=== PATIENT | female | born 1985 | race American Indian/Alaskan Native ===

== ENCOUNTER 2019-02-09 12:54 | Inpatient (IN) | payer MEDICAID ==
[2019-02-09] MEDS ORDERED: CELESTONE SOLUSPAN IM SCH (17:00)
[2019-02-09] MEDS ORDERED: LACTATED RINGERS 0 ML ONE (17:26)
[2019-02-09 17:40] LABS: Hematocrit 31.4 % (30.3-42.9); Hemoglobin 10.6 gm/dl (10.1-14.3); Mean Corpuscular HGB Conc 34 % (30-34); Mean Corpuscular Volume 73 fl (79-97); Platelet Count 329 K/mm3 (140-440); Red Blood Count 4.32 M/mm3 (3.65-5.03); Red Cell Distribution Width 19.2 % (13.2-15.2)
[2019-02-09 17:53] LABS: Alanine Aminotransferase 11 units/L (7-56); Uric Acid 3.2 mg/dL (3.5-7.6)
[2019-02-09 17:54] LABS: Bilirubin,Direct < 0.2 mg/dL (0-0.2)
[2019-02-09] MEDS ORDERED: MAGNESIUM SULFATE 4GM/100ML 4 GM/100 ML BAG IV ONE (19:11)
--- NOTE | 2019-02-09 19:18 | History and Physical Report ---
History of Present Illness Date of admission: 02/09/19 12:54 History of present illness: 33yo 29 6/7 weeks presented to L&D sent by [facility] [place] for absent diastolic flow of umbilical artery, single umbilical artery, IUGR and chronic hypertension. Her is further complicated by marginal cord, morbid obesity and advanced maternal age. She reports good movement, no loss of fluid and no vaginal bleeding. She is a patient of Dr. Geraldo Villarreal's at [facility]. She has b een com-managed with [facility] [place] who identified the AEDF today. Of significance, the patient states since 3 yo's she's been unable to take oral pills and therefore has not taken the recommended low dose aspirin or labetolol. Past History Past Medical History: hypertension Past Surgical History: section, other Social history: single - Obstetrical History : 5 Induced : 3 Number of Living Children: 1 Medications and Allergies Allergies Allergy/AdvReac Type Severity Reaction Status Date / Time No Known Allergies Allergy Unverified 02/09/19 13:30 Home Medications Medication Instructions Recorded Confirmed Last Taken Type Labetalol [Normodyne TAB] 100 mg PO BID 02/09/19 02/09/19 02/09/19 History 1 Pnv,Calcium 72/Iron/Folic Acid 1 each PO DAILY 02/09/19 02/09/19 02/09/19 History [Pnv Plus Multivit Tab] Active Meds: Active Medications Betamethasone Acet/Betameth SodPhos (Celestone Soluspan) 12 mg IM Q24H KATEY Stop: 02/10/19 17:01 Last Admin: 02/09/19 18:21 Dose: 12 mg Documented by: Hydralazine HCl (Apresoline) 5 mg IV Q30MIN PRN PRN Reason: Hypertension Lactated Ringer's (Lactated Ringers) 1,000 mls @ 125 mls/hr IV DIRECT KATEY Magnesium Sulfate (Magnesium Sulfate 40gm/1000ml) 40 gm in 1,000 mls @ 50 mls/hr IV DIRECT KATEY Magnesium Sulfate (Magnesium Sulfate 4gm/100ml) 4 gm in 100 mls @ 300 mls/hr IV ONCE ONE Stop: 02/09/19 19:30 - Vital Signs Vital signs: Vital Signs Pulse BP 67 150/75 02/09/19 13:27 02/09/19 13:27 Temp Pulse Resp BP Pulse Ox 98.1 F 60 18 164/74 02/09/19 13:38 02/09/19 18:48 02/09/19 13:38 02/09/19 18:48 - Obstetrical FHR: auscultation normal Uterine Contraction Pattern: Absent Results Result Diagrams: 02/09/19 17:01 02/10/19 05:36 Abnormal lab results 02/09/19 02/09/19 02/09/19 Range/Units 17:01 17:07 17:08 MCV 73 L (79-97) fl MCH 25 L (28-32) pg RDW 19.2 H (13.2-15.2) % Uric Acid 3.2 L (3.5-7.6) mg/dL Lactate Dehydrogenase 245 H (91-180) units/L Albumin 3.0 L (3.9-5) g/dL All other labs normal. Assessment and Plan - Patient Problems (1) Chronic hypertension affecting Current Visit: Yes Status: Acute Plan to address problem: -PIH labs, HgbA1C ordered -Labetolol 100mg PO BID ordered. (2) Uteroplacental insufficiency, third trimester Current Visit: Yes Status: Acute Plan to address problem: 1. Per APA recommendations due to absent end diastolic flow - order twice weekly UA dopplers, first 02/10/19 - betamethasone for lung maturity - magnesium sulfate for neuroprotection for 12-24hrs (3) Single umbilical artery Current Visit: Yes Status: Acute (4) IUGR (intrauterine growth restriction) Current Visit: Yes Status: Acute Plan to address problem: -TORCH labs ordered (5) 29 weeks gestation of Current Visit: Yes Status: Acute Plan to address problem: Continuous monitoring consult for counseling on outcomes for premature infant
--- NOTE | 2019-02-09 21:07 | Ultrasound Report ---
PROCEDURE: US OB BPP WO NON-STRESS TECHNIQUE: Sonographic evaluation for breathing, movement, tone, and amniotic flui d volume was performed. HISTORY: chronic hypertension COMPARISONS: None . FINDINGS: FETUS Single intrauterine gestation is noted. heart rate is 150 bpm Amniotic fluid volume Normal-score 2. At least one vertical pocket >2 cm or more in vertical axis . breathing: Normal-score 2 . movement: Normal-score 2 . tone: Normal-score 2 . Score: 8 of 8 . IMPRESSION: Normal biophysical profile . This document is electronically signed by Dany Mcdaniel MD., February 09 2019 09:05:55 PM ET
[2019-02-09] MEDS: LACTATED RINGERS 1,000 ML IV SCH (21:46)
[2019-02-09] MEDS: MAGNESIUM SULFATE 40GM/1000ML 40 GM/1,000 ML BAG IV SCH (21:47)
[2019-02-09] MEDS ORDERED: NORMODYNE PO SCH (22:00)
[2019-02-09] MEDS ORDERED: ZOFRAN IV PRN (23:44)
[2019-02-09] MEDS ORDERED: COLACE PO PRN (23:44)
[2019-02-09] MEDS ORDERED: BENADRYL PO PRN (23:44)
[2019-02-10 08:29] LABS: Bilirubin,Urine NEG (Negative); Blood,Urine SM (Negative); Color,Urine Straw (Yellow); Protein,Urine <15 mg/dL mg/dL (Negative); Urobilinogen,Urine < 2.0 mg/dL (<2.0)
--- NOTE | 2019-02-10 08:29 | Progress Note ---
Assessment and Plan - Patient Problems (1) Chronic hypertension affecting Current Visit: Yes Status: Acute Plan to address problem: -PIH labs, HgbA1C ordered -Labetolol 100mg PO BID ordered. (2) Uteroplacental insufficiency, third trimester Current Visit: Yes Status: Acute Plan to address problem: 1. Per APA recommendations due to absent end diastolic flow - order twice weekly UA dopplers, first 02/10/19 - betamethasone for lung maturity - magnesium sulfate for neuroprotection for 12-24hrs (3) Single umbilical artery Current Visit: Yes Status: Acute (4) IUGR (intrauterine growth restriction) Current Visit: Yes Status: Acute Plan to address problem: -TORCH labs ordered (5) 29 weeks gestation of Current Visit: Yes Status: Acute Plan to address problem: Continuous monitoring consult for counseling on outcomes for premature Subjective - Subjective Interval history: Patient has no new complaints. Reports good movement, no loss of fluid and no vaginal bleeding. 33yo 29 6/7 weeks presented to L&D sent by [facility] [place] for absent diastolic flow of umbilical artery, single umbilical artery, IUGR and chronic hypertension. Her is further complicated by marginal cord, morbid obesity and advanced maternal age. She reports good movement, no loss of fluid and no vaginal bleeding. She is a patient of Dr. Geraldo Villarreal's at [facility]. She has been com-managed with [facility] [place] who identified the AEDF today. Of significance, the patient states since 3 yo's she's been unable to take oral pills and therefore has not taken the recommended low dose aspirin or labetolol. Patient reports: movement normal Objective - Vital Signs Vital Signs: Vital Signs - 12hr 02/09/19 02/09/19 02/09/19 20:37 20:52 20:56 Temperature 98.8 F Pulse Rate 60 60 Respiratory 18 Rate Blood Pressure 148/71 161/74 Blood Pressure [Right] O2 Sat by Pulse 99 Oximetry 02/09/19 02/09/19 02/09/19 21:07 21:22 21:43 Temperature Pulse Rate 69 71 71 Respiratory 18 Rate Blood Pressure 186/101 169/79 160/83 Blood Pressure [Right] O2 Sat by Pulse Oximetry 02/09/19 02/09/19 02/09/19 21:45 21:46 21:52 Temperature 97.6 F Pulse Rate 64 58 L Respiratory 18 Rate Blood Pressure 160/83 159/74 Blood Pressure [Right] O2 Sat by Pulse Oximetry 02/09/19 02/09/19 02/09/19 22:07 22:22 22:38 Temperature Pulse Rate 66 83 88 Respiratory 18 18 18 Rate Blood Pressure 159/76 147/65 135/57 Blood Pressure [Right] O2 Sat by Pulse Oximetry 02/09/19 02/09/19 02/09/19 22:52 23:07 23:22 Temperature Pulse Rate 77 82 86 Respiratory 18 Rate Blood Pressure 140/65 141/67 142/71 Blood Pressure [Right] O2 Sat by Pulse Oximetry 02/09/19 02/10/19 02/10/19 23:37 00:17 00:47 Temperature 98 F 97.6 F Pulse Rate 90 86 77 Respiratory 18 18 Rate Blood Pressure 132/66 137/73 147/71 Blood Pressure [Right] O2 Sat by Pulse Oximetry 02/10/19 02/10/19 02/10/19 01:17 01:47 01:50 Temperature 98.4 F Pulse Rate 80 82 82 Respiratory 16 Rate Blood Pressure 132/60 131/73 Blood Pressure 131/72 [Right] O2 Sat by Pulse Oximetry 02/10/19 02/10/19 02/10/19 02:17 02:47 03:00 Temperature 98.4 F Pulse Rate 81 83 Respiratory 16 Rate Blood Pressure 137/85 125/73 Blood Pressure [Right] O2 Sat by Pulse Oximetry 02/10/19 02/10/19 02/10/19 03:17 03:47 04:00 Temperature Pulse Rate 85 79 Respiratory 16 Rate Blood Pressure 138/75 138/81 Blood Pressure [Right] O2 Sat by Pulse Oximetry 02/10/19 02/10/19 02/10/19 04:17 04:47 05:17 Temperature Pulse Rate 77 81 82 Respiratory Rate Blood Pressure 136/76 147/83 140/78 Blood Pressure [Right] O2 Sat by Pulse Oximetry 02/10/19 02/10/19 02/10/19 05:19 05:47 06:17 Temperature Pulse Rate 83 81 Respiratory 16 Rate Blood Pressure 140/79 123/59 Blood Pressure [Right] O2 Sat by Pulse Oximetry 02/10/19 02/10/19 02/10/19 06:47 07:18 07:47 Temperature Pulse Rate 82 84 95 H Respiratory Rate Blood Pressure 141/75 130/79 124/85 Blood Pressure [Right] O2 Sat by Pulse Oximetry 02/10/19 02/10/19 02/10/19 07:56 08:00 08:01 Temperature 98.0 F Pulse Rate 84 86 Respiratory 20 Rate Blood Pressure Blood Pressure [Right] O2 Sat by Pulse 98 99 Oximetry 02/10/19 02/10/19 02/10/19 08:06 08:11 08:16 Temperature Pulse Rate 86 90 86 Respiratory Rate Blood Pressure Blood Pressure [Right] O2 Sat by Pulse 98 98 99 Oximetry 02/10/19 02/10/19 02/10/19 08:17 08:21 08:26 Temperature Pulse Rate 86 86 83 Respiratory Rate Blood Pressure 154/88 Blood Pressure [Right] O2 Sat by Pulse 98 99 Oximetry - Labs Labs: Abnormal Labs 02/09/19 02/09/19 02/09/19 17:01 17:07 17:08 MCV 73 L MCH 25 L RDW 19.2 H Creatinine Uric Acid 3.2 L Lactate Dehydrogenase 245 H Albumin 3.0 L 02/10/19 05:36 MCV MCH RDW Creatinine 0.6 L Uric Acid Lactate Dehydrogenase Albumin Laboratory Results - last 24 hr 02/09/19 02/09/19 02/09/19 17:01 17:07 17:08 WBC 9.4 RBC 4.32 Hgb 10.6 Hct 31.4 MCV 73 L MCH 25 L MCHC 34 RDW 19.2 H Plt Count 329 Creatinine Estimated GFR Hemoglobin A1c Uric Acid 3.2 L Total Bilirubin < 0.20 Direct Bilirubin < 0.2 Indirect Bilirubin 0.0 AST 25 ALT 11 Alkaline Phosphatase 96 Lactate Dehydrogenase 245 H Total Protein 6.5 Albumin 3.0 L Albumin/Globulin Ratio 0.9 HIV 1&2 Antibody Rapid HIV P24 Antigen Rubella IgG Antibody 02/09/19 02/10/19 02/10/19 17:08 05:36 05:36 WBC RBC Hgb Hct MCV MCH MCHC RDW Plt Count Creatinine 0.6 L Estimated GFR > 60 Hemoglobin A1c 5.7 Uric Acid Total Bilirubin Direct Bilirubin Indirect Bilirubin AST ALT Alkaline Phosphatase Lactate Dehydrogenase Total Protein Albumin Albumin/Globulin Ratio HIV 1&2 Antibody Rapid HIV P24 Antigen Rubella IgG Antibody Immune 02/10/19 05:36 WBC RBC Hgb Hct MCV MCH MCHC RDW Plt Count Creatinine Estimated GFR Hemoglobin A1c Uric Acid Total Bilirubin Direct Bilirubin Indirect Bilirubin AST ALT Alkaline Phosphatase Lactate Dehydrogenase Total Protein Albumin Albumin/Globulin Ratio HIV 1&2 Antibody Rapid Non react HIV P24 Antigen Non react Rubella IgG Antibody
[2019-02-10] MEDS: FEOSOL PO SCH ×2 (09:34→21:37)
[2019-02-10] MEDS: NORMODYNE PO SCH ×2 (09:34→21:36)
--- NOTE | 2019-02-10 14:22 | Consultation ---
Consult Note - Parent Education I met with parent(s) and discussed the following:: Need for NICU admission, Poss ible need for intubation and surfactant or other resp support, Temperature regulation, Head ultrasounds to evaluate IVH, Eye exams for ROP screening, Possible need for IV fluids/TPN and IV antibiotics, Possible need for umbilical lines, Importance of providing breast milk & encouraged pumping aft delivery, Donor breast milk if baby meets criteria after , Slow feeding advancement and monitoring of tolerance. NG/OG feeds, Need to monitor for jaundice Parent(s) demonstrated understanding of all the information:: Yes Additional Comment: 29 weeks gestation IUGR with absent end distolic flow. Mother has chronic HTN. Mother states baby has 2 vessel cord. Previous child (9yrs old) was 36 weeks IUGR and stayed in NICU for 2-3 weeks. Assessment and Plan - Assessment Gestation:: 29 (weeks) Estimated Weight: approx 1000g from US 2 weeks prior Baby's gender: Male - Plan Plan: Agree with Mag & steroids Will attend delivery Please call NICU with questions
[2019-02-10] MEDS: LACTATED RINGERS 1,000 ML IV SCH (17:35)
[2019-02-10] MEDS ORDERED: CELESTONE SOLUSPAN IM SCH (19:15)
--- NOTE | 2019-02-10 20:56 | Ultrasound Report ---
PROCEDURE: US OB LIMITED TECHNIQUE: Real-time limited sonographic examination was performed for evaluation of for each fetus with image documentation (1 or more fetuses). HISTORY: FWB;RYAN COMPARISONS: None . FINDINGS: Single intrauterine gestation is noted with cephalic presentation. heart rate is 106 bpm. Amnio tic fluid index is 8.5 cm. IMPRESSION: Normal amniotic fluid index This document is electronically signed by Dany Mcdaniel MD., February 10 2019 08:54:51 PM ET
--- NOTE | 2019-02-11 10:19 | Ultrasound Report ---
PROCEDURE: US OB VELOCIMETRY UMBILCAL ART TECHNIQUE: Duplex Doppler imaging of the umbilical artery was performed HISTORY: chronic hypertension COMPARISONS: None. FINDINGS: There is intermittently a decreased end diastolic flow within the umbilical artery, with an elevated systolic to diastolic ratio average of 5.17. Resistive indices average is 0.8. IMPRESSION: Intermittent reduction in end-diastolic flow of the umbilical artery with elevated resistive indices. This document is electronically signed by Autumn Andrade MD., February 11 2019 10:16:58 AM ET
[2019-02-11] MEDS: NORMODYNE PO SCH ×2 (11:21→21:47)
[2019-02-11] MEDS: FEOSOL PO SCH ×2 (11:23→21:47)
--- NOTE | 2019-02-11 14:09 | Progress Note ---
Assessment and Plan - Patient Problems (1) Chronic hypertension affecting Current Visit: Yes Status: Acute Plan to address problem: - PIH labs reviewed and within normal asher its - HgbA1C 5.7. 1hr OGTT available at [facility] - BP labile 130-160/80s; Continue Labetolol 100mg PO BID - s/p magnesium sulfate for neuroprotection - s/p betamethasone for lung maturity - NICU consult done - 24hr urine protein 770mg. Obtain baseline results from [facility]. Patient states has done 3 collections. - Await APA recommendation on Tuesday - Dr. Steve Villarreal will resume care of patient on 02/12/2019. (2) Uteroplacental insufficiency, third trimester Current Visit: Yes Status: Acute (3) Single umbilical artery Current Visit: Yes Status: Acute (4) IUGR (intrauterine growth restriction) Current Visit: Yes Status: Acute Plan to address problem: -TORCH labs ordered (5) 29 weeks gestation of Current Visit: Yes Status: Acute Plan to address problem: Continuous monitoring Subjective - Subjective Interval history: Patient has no new complaints. Reports good movement, no loss of fluid and no vaginal bleeding. 33yo 29 6/7 weeks presented to L&D sent by [facility] [place] for absent diastolic flow of umbilical artery, single umbilical artery, IUGR and chronic hypertension. Her is further complicated by marginal cord, morbid obesity and advanced maternal age. She reports good movement, no loss of fluid and no vaginal bleeding. She is a patient of Dr. Geraldo Villarreal's at [facility]. She has been com-managed with [facility] who identified the AEDF today. Of significance, the patient states since 3 yo's she's been unable to take oral pills and therefore has not taken the recommended low dose aspirin or labetolol. Patient reports: movement normal Objective - Vital Signs Vital Signs: Vital Signs - 12hr 02/11/19 02/11/19 02/11/19 02:10 02:15 02:17 Temperature Pulse Rate 72 82 85 Respiratory Rate Blood Pressure 142/83 O2 Sat by Pulse 98 97 Oximetry 02/11/19 02/11/19 02/11/19 02:20 02:25 02:27 Temperature Pulse Rate 82 78 88 Respiratory Rate Blood Pressure O2 Sat by Pulse 98 99 81 L Oximetry 02/11/19 02/11/19 02/11/19 02:30 02:35 02:40 Temperature Pulse Rate 69 73 71 Respiratory Rate Blood Pressure O2 Sat by Pulse 98 98 98 Oximetry 02/11/19 02/11/19 02/11/19 02:45 02:47 02:50 Temperature Pulse Rate 89 77 73 Respiratory Rate Blood Pressure 139/86 O2 Sat by Pulse 98 99 Oximetry 02/11/19 02/11/19 02/11/19 02:55 03:00 03:05 Temperature Pulse Rate 84 80 69 Respiratory Rate Blood Pressure O2 Sat by Pulse 99 98 98 Oximetry 02/11/19 02/11/19 02/11/19 03:10 03:15 03:20 Temperature Pulse Rate 82 81 85 Respiratory Rate Blood Pressure O2 Sat by Pulse 98 98 98 Oximetry 02/11/19 02/11/19 02/11/19 03:25 03:30 03:47 Temperature Pulse Rate 73 86 57 L Respiratory Rate Blood Pressure 130/62 O2 Sat by Pulse 98 98 Oximetry 02/11/19 02/11/19 02/11/19 04:17 04:47 05:17 Temperature Pulse Rate 62 95 H 61 Respiratory Rate Blood Pressure 129/63 118/75 142/65 O2 Sat by Pulse Oximetry 02/11/19 02/11/19 02/11/19 05:47 05:55 06:00 Temperature Pulse Rate 80 70 85 Respiratory Rate Blood Pressure 123/65 O2 Sat by Pulse 97 97 Oximetry 02/11/19 02/11/19 02/11/19 06:05 06:10 06:15 Temperature Pulse Rate 87 72 85 Respiratory Rate Blood Pressure O2 Sat by Pulse 97 97 97 Oximetry 02/11/19 02/11/19 02/11/19 06:17 06:20 06:25 Temperature Pulse Rate 83 87 83 Respiratory Rate Blood Pressure 132/76 O2 Sat by Pulse 97 98 Oximetry 02/11/19 02/11/19 02/11/19 06:30 06:35 06:40 Temperature Pulse Rate 89 92 H 92 H Respiratory Rate Blood Pressure O2 Sat by Pulse 97 94 97 Oximetry 02/11/19 02/11/19 02/11/19 06:45 06:47 06:50 Temperature Pulse Rate 81 78 77 Respiratory Rate Blood Pressure 136/71 O2 Sat by Pulse 96 97 Oximetry 02/11/19 02/11/19 02/11/19 06:55 07:00 07:05 Temperature Pulse Rate 83 79 84 Respiratory Rate Blood Pressure O2 Sat by Pulse 97 95 96 Oximetry 02/11/19 02/11/19 02/11/19 07:24 07:29 07:35 Temperature Pulse Rate 63 68 66 Respiratory Rate Blood Pressure O2 Sat by Pulse 98 97 97 Oximetry 02/11/19 02/11/19 02/11/19 07:40 07:45 07:47 Temperature Pulse Rate 59 L 63 64 Respiratory Rate Blood Pressure 143/67 O2 Sat by Pulse 97 97 Oximetry 02/11/19 02/11/19 02/11/19 07:50 07:55 08:00 Temperature Pulse Rate 69 77 84 Respiratory Rate Blood Pressure O2 Sat by Pulse 97 96 97 Oximetry 02/11/19 02/11/19 02/11/19 08:05 08:10 08:15 Temperature 98.3 F Pulse Rate 75 76 66 Respiratory 16 Rate Blood Pressure O2 Sat by Pulse 97 97 96 Oximetry 02/11/19 02/11/19 02/11/19 08:17 08:19 08:24 Temperature Pulse Rate 68 70 93 H Respiratory Rate Blood Pressure 138/68 O2 Sat by Pulse 94 97 97 Oximetry 02/11/19 02/11/19 02/11/19 08:30 08:34 08:39 Temperature Pulse Rate 64 71 75 Respiratory Rate Blood Pressure O2 Sat by Pulse 96 98 97 Oximetry 02/11/19 02/11/19 11:20 11:21 Temperature Pulse Rate 71 71 Respiratory Rate Blood Pressure 133/69 133/69 O2 Sat by Pulse Oximetry - Labs Labs: Abnormal Labs 02/09/19 02/09/19 02/09/19 16:01 17:01 17:07 MCV 73 L MCH 25 L RDW 19.2 H Creatinine Uric Acid Magnesium Lactate Dehydrogenase 245 H Albumin Urine WBC (Auto) Ur Total Protein 24 Hr 770.00 H Urine Total Protein 22 H 02/09/19 02/10/19 02/10/19 17:08 05:36 08:03 MCV MCH RDW Creatinine 0.6 L Uric Acid 3.2 L Magnesium Lactate Dehydrogenase Albumin 3.0 L Urine WBC (Auto) 8.0 H Ur Total Protein 24 Hr Urine Total Protein 02/10/19 02/10/19 09:23 15:45 MCV MCH RDW Creatinine Uric Acid Magnesium 5.90 H 5.10 H Lactate Dehydrogenase Albumin Urine WBC (Auto) Ur Total Protein 24 Hr Urine Total Protein Laboratory Results - last 24 hr 02/09/19 02/10/19 16:01 15:45 Magnesium 5.10 H Urine Total Volume 3500 Ur Total Protein 24 Hr 770.00 H Urine Total Protein 22 H
[2019-02-11] MEDS: LACTATED RINGERS 1,000 ML IV SCH (16:51)
--- NOTE | 2019-02-12 00:56 | Ultrasound Report ---
PROCEDURE: US OB BPP WO NON-STRESS TECHNIQUE: Sonographic evaluation for breathing, movement, tone, and amniotic flui d volume was performed. HISTORY: well being COMPARISONS: None . FINDINGS: FETUS Amniotic fluid volume Normal-score 2. At least one vertical pocket >2 cm or more in vertical axis . breathing: Normal-score 2 . movement: Normal-score 2 . tone: Normal-score 2 . Score: 8 of 8 . IMPRESSION: Normal biophysical profile . This document is electronically signed by Cherry Corral DO., February 12 2019 12:54:41 AM ET
--- NOTE | 2019-02-12 01:33 | Ultrasound Report ---
PROCEDURE: US OB VELOCIMETRY UMBILCAL ART TECHNIQUE: Duplex Doppler imaging of the umbilical artery HISTORY: well being maternal hypertension COMPARISONS: February 11, 2019 FINDINGS: There is intermittently decreased and diastolic flow within the umbilical artery, there is elevated s ystolic to diastolic ratio average of 5.5 the resistive indices average is 0.8 IMPRESSION: Unchanged indeterminate reduction and diastolic flow of the umbilical artery with elevated resistive indices. This document is electronically signed by Cherry Corral DO., February 12 2019 01:30:25 AM ET
[2019-02-12] MEDS: LACTATED RINGERS 1,000 ML IV SCH ×2 (02:52→15:05)
--- NOTE | 2019-02-12 10:23 | Progress Note ---
Assessment and Plan - Patient Problems (1) 29 weeks gestation of Current Visit: Yes Status: Acute (2) Chronic hypertension affecting Current Visit: Yes Status: Acute Plan to address problem: Continue labetolol. Monitor BP. (3) IUGR (intrauterine growth restriction) Current Visit: Yes Status: Acute (4) Uteroplacental insufficiency, third trimester Current Visit: Yes Status: Acute Qualifiers: Qualified Code(s): O36.5134 - Maternal care for known or suspected placental insufficiency, third trimester, fetus 4 Plan to address problem: Continous monitoring. Follow sonogram with doppler tonight. Patient was told that if umbilical doppler flow becomes reversed, or there are any signs of compromise, she will need to be delivered. APA consult. NICU consult done. (5) Obesity Current Visit: Yes Status: Acute Qualifiers: Obesity type: due to excess calories (6) Anemia Current Visit: Yes Status: Acute Qualifiers: Anemia type: iron deficiency Subjective - Subjective Date of service: 02/12/19 Principal diagnosis: SIUP at 29 weeks and 5 days with CHTN, IUGR, absent EDF Interval history: Patient is a 33 year old EDC 04/25/19 at 29 weeks and 5 days gestation who was admitted 3 days ago for elevated BP, IUGR, absent EDF. She is a patient of [place] and has been co-managed with [facility]. She was seen at [facility] on 02/09 and sonogram showed the above findings. On admission, her BP was elevated and toxemia labs were normal. 24-hr urine was 770. She is on labetolol. She was given celestone for FLM (completed on 02/10) and magnesium sulfate for neuroprotection. Follow cord doppler remains unchanged. Patient reports good movement. Patient reports: movement normal Objective - Vital Signs Vital Signs: Vital Signs - 12hr 02/11/19 02/12/19 02/12/19 23:34 05:53 05:54 Pulse Rate 62 52 L 56 L Blood Pressure 138/63 190/83 165/64 - Exam Cardiovascular: Normal S1, Normal S2 Lungs: Clear to auscultation Vulva: both: normal FHR: category 1 Uterine Contraction Monitor Mode: External Uterine Contraction Pattern: Absent Deep Tendon Reflex Grade: Normal +2 - Labs Labs: Abnormal Labs 02/09/19 02/09/19 02/09/19 16:01 17:01 17:07 MCV 73 L MCH 25 L RDW 19.2 H Creatinine Uric Acid Magnesium Lactate Dehydrogenase 245 H Albumin Urine WBC (Auto) Ur Total Protein 24 Hr 770.00 H Urine Total Protein 22 H 02/09/19 02/10/19 02/10/19 17:08 05:36 08:03 MCV MCH RDW Creatinine 0.6 L Uric Acid 3.2 L Magnesium Lactate Dehydrogenase Albumin 3.0 L Urine WBC (Auto) 8.0 H Ur Total Protein 24 Hr Urine Total Protein 02/10/19 02/10/19 09:23 15:45 MCV MCH RDW Creatinine Uric Acid Magnesium 5.90 H 5.10 H Lactate Dehydrogenase Albumin Urine WBC (Auto) Ur Total Protein 24 Hr Urine Total Protein - Results US- obstetric: report reviewed
[2019-02-12] MEDS: FEOSOL PO SCH ×2 (10:24→21:21)
[2019-02-12] MEDS: NORMODYNE PO SCH ×2 (10:24→21:19)
--- NOTE | 2019-02-12 11:42 | Ultrasound Report ---
ULTRASOUND BIOPHYSICAL PROFILE: History: Intrauterine growth restriction Technique: Transabdominal ultrasound with Doppler interrogation. 2 - breathing movements 2 - movements 2 - posture and tone 2 - Qualitative amniotic fluid volume 8 - TOTAL SCORE OF POSSIBLE 8 Heart Rate (bpm) 146
--- NOTE | 2019-02-12 11:43 | Ultrasound Report ---
ULTRASOUND OB VELOCIMETRY UMBILICAL ARTERY HISTORY: Intrauterine growth restriction. TECHNIQUE: Transabdominal ultrasound. Spectral Doppler interrogation was performed on 3 segments of the umbilical cord. FINDINGS: heart rate measures 147 beats per minute. The spectral waveforms are normal and persistent. No evidence for loss or reversal of end-diastolic flow. The resistive index average measures 0.78. The systolic/diastolic ratio average measures 4.49. IMPRESSION: Elevated resistive indices.
--- NOTE | 2019-02-12 12:14 | Progress Note ---
Assessment and Plan patient is 33 yo @ 30w2d with IUGR sent with AEDF and CHTN not well controlled, MO and AMA - I reviewed the images from the US today and the BPP was 8/8 and the UA was normal to elevated - the patient BP has not been controlled and she has no sxs - the labetalol will be increased to 300 BID - NST should be q 8 - growth scan q 3 weeks - ensure beta and mag course complete - PIH labs were normal - the patient may be able to be outpatient after BP are normal and controlled but we would need to consider MELANIE as well - the patient understadnsd that she will stay at this time in house - please call will watch BP on new dose medication - BP should be stabilized to 160/110 - with labs abniormalities, RUQ pain, pulm edema, kidney compromise NRFHT would have to consider delivery at earlier GA - doppler should be MWF and with deterioration would make further assessment - please call [facility] with any further concerns Subjective - Subjective Date of service: 02/12/19 Principal diagnosis: SIUP at 29 weeks and 5 days with CHTN, IUGR, absent EDF Interval history: the patient says that she is feeling well at the moment and has no ESTEBAN vision changes no RUQ pain, good FM no VB she feels well Patient reports: movement normal, no new complaints, no loss of fluid, no vaginal bleeding, no contractions Objective - Vital Signs Vital Signs: Vital Signs - 12hr 02/12/19 02/12/19 02/12/19 05:53 05:54 10:24 Pulse Rate 52 L 56 L 56 L Blood Pressure 190/83 165/64 165/64 02/12/19 02/12/19 10:26 10:27 Pulse Rate 50 L 54 L Blood Pressure 234/102 187/84 - Exam Cardiovascular: Regular rate Abdomen: Present: normal appearance, soft. Absent: distention, tenderness, guarding Uterus: Present: normal FHR: other (not on monitor now ) Extremities: normal - Labs Labs: Abnormal Labs 02/09/19 02/09/19 02/09/19 16:01 17:01 17:07 MCV 73 L MCH 25 L RDW 19.2 H Creatinine Uric Acid Magnesium Lactate Dehydrogenase 245 H Albumin Urine WBC (Auto) Ur Total Protein 24 Hr 770.00 H Urine Total Protein 22 H 0402/10/19 02/10/19 17:08 05:36 08:03 MCV MCH RDW Creatinine 0.6 L Uric Acid 3.2 L Magnesium Lactate Dehydrogenase Albumin 3.0 L Urine WBC (Auto) 8.0 H Ur Total Protein 24 Hr Urine Total Protein 02/10/19 02/10/19 09:23 15:45 MCV MCH RDW Creatinine Uric Acid Magnesium 5.90 H 5.10 H Lactate Dehydrogenase Albumin Urine WBC (Auto) Ur Total Protein 24 Hr Urine Total Protein
[2019-02-12] MEDS: APRESOLINE IV PRN (19:29)
[2019-02-12] MEDS ORDERED: MILK OF MAGNESIA PO ONE (23:11)
[2019-02-13] MEDS: LACTATED RINGERS 1,000 ML IV SCH (00:29)
[2019-02-13 00:37] LABS: Hematocrit 32.1 % (30.3-42.9); Mean Corpuscular HGB Conc 31 % (30-34); Mean Corpuscular Volume 74 fl (79-97); Platelet Count 322 K/mm3 (140-440); Red Blood Count 4.34 M/mm3 (3.65-5.03); Red Cell Distribution Width 20.2 % (13.2-15.2)
[2019-02-13 01:02] LABS: Alanine Aminotransferase 17 units/L (7-56)
[2019-02-13 01:23] LABS: Bacteria,Urine 1+ /HPF (Negative); Bilirubin,Urine NEG (Negative); Blood,Urine NEG (Negative); Color,Urine Colorless (Yellow); Urobilinogen,Urine < 2.0 mg/dL (<2.0)
[2019-02-13 01:26] LABS: WBC,Urine < 1.0 /HPF (0.0-6.0)
[2019-02-13 02:21] LABS: Uric Acid 3.4 mg/dL (3.5-7.6)
[2019-02-13] MEDS: APRESOLINE IV PRN ×2 (04:20→21:06)
[2019-02-13] MEDS ORDERED: NORMODYNE IV ONE (04:37)
--- NOTE | 2019-02-13 04:40 | Event Note ---
Date: 02/13/19 Patient complained of having severe crampy pain across her abdomen. She has a history of constipation. She has been taking miralax. Milk of magnesia was added last night. She was not able to lay down still and has been moving around. During that episode, her BP was 225/107. She was given IV hydralazine which brought the BP down to 200/84. I went to assess her. She was found sitting in bed and looked uncomfortable. She says that the gas is moving throughout her abdomen. She denies any headache or visual changes. She removed the monitor. doppler showed FH in the 140'd bpm. Toxemia labs ordered. Will monitor BP closely and give anti-HTN to keep BP in the 140's/80's.
[2019-02-13 05:15] LABS: Cardiolipin Ab IgA <11 APL (<=11); Cardiolipin Ab IgG <14 GPL (<=14); Cardiolipin Ab IgM <12 MPL (<=12)
[2019-02-13] MEDS: TYLENOL PO PRN (08:24)
[2019-02-13] MEDS: NORMODYNE PO SCH ×2 (10:19→22:10)
--- NOTE | 2019-02-13 10:21 | Progress Note ---
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 She is a patient of [facility] and has been co-managed with [facility]. She was seen at [facility] on 02/09/19 and sonogram showed the above findings. On admission, her BP was elevated and toxemia labs were normal. 24-hr urine was 770mg protein. She is on Labetolol 300mg BID. She was given Celestone for FLM (completed on 02/10/19) and magnesium sulfate for neuroprotection. Follow cord doppler remains unchanged. Patient reports good movement. Today she denies headaches, resolved earlier today with Tylenol, and crampy abdominal pains resolved with MOM and Miralax. Patient reports: movement normal, no new complaints, no loss of fluid, no vaginal bleeding Objective - Vital Signs Vital Signs: Vital Signs - 12hr 02/12/19 02/12/19 02/12/19 22:23 22:33 22:38 Temperature Pulse Rate 55 L 67 68 Respiratory Rate Blood Pressure 195/85 209/86 Blood Pressure [Right] O2 Sat by Pulse 96 Oximetry 02/12/19 02/12/19 02/12/19 22:42 22:43 22:48 Temperature Pulse Rate 72 67 69 Respiratory Rate Blood Pressure 175/79 Blood Pressure [Right] O2 Sat by Pulse 96 95 Oximetry 02/12/19 02/12/19 02/13/19 22:52 22:53 00:34 Temperature Pulse Rate 68 70 73 Respiratory Rate Blood Pressure 144/64 Blood Pressure [Right] O2 Sat by Pulse 94 95 Oximetry 02/13/19 02/13/19 02/13/19 00:38 02:35 04:16 Temperature 98.0 F 99.4 F Pulse Rate 73 63 73 Respiratory 20 18 Rate Blood Pressure 189/85 225/107 Blood Pressure 144/64 225/107 [Right] O2 Sat by Pulse Oximetry 02/13/19 02/13/19 02/13/19 04:20 04:26 04:30 Temperature Pulse Rate 73 74 71 Respiratory Rate Blood Pressure 225/107 200/81 210/88 Blood Pressure [Right] O2 Sat by Pulse Oximetry 02/13/19 02/13/19 02/13/19 04:36 04:44 04:48 Temperature Pulse Rate 78 78 75 Respiratory Rate Blood Pressure 188/79 188/79 189/87 Blood Pressure [Right] O2 Sat by Pulse Oximetry 02/13/19 02/13/19 02/13/19 04:58 05:08 05:19 Temperature Pulse Rate 87 87 77 Respiratory Rate Blood Pressure 195/87 211/93 181/77 Blood Pressure [Right] O2 Sat by Pulse Oximetry 02/13/19 02/13/19 02/13/19 05:30 05:56 06:09 Temperature Pulse Rate 87 109 H 85 Respiratory Rate Blood Pressure 70/50 136/74 209/91 Blood Pressure [Right] O2 Sat by Pulse Oximetry 02/13/19 02/13/19 02/13/19 06:11 06:19 06:28 Temperature Pulse Rate 85 70 70 Respiratory Rate Blood Pressure 201/88 201/86 202/92 Blood Pressure [Right] O2 Sat by Pulse Oximetry 02/13/19 02/13/19 08:12 08:13 Temperature 98.0 F Pulse Rate 74 Respiratory Rate Blood Pressure 146/77 Blood Pressure [Right] O2 Sat by Pulse Oximetry - Exam Abdomen: Present: normal appearance, soft Uterus: Present: normal FHR: category 1 - Labs Labs: Abnormal Labs 02/09/19 02/09/19 02/09/19 16:01 17:01 17:07 WBC Hgb MCV 73 L MCH 25 L RDW 19.2 H Creatinine Uric Acid Magnesium Lactate Dehydrogenase 245 H Albumin Urine pH Urine WBC (Auto) Ur Total Protein 24 Hr 770.00 H Urine Total Protein 22 H 04/12/19 04/13/19 04/13/19 17:08 05:36 08:03 WBC Hgb MCV MCH RDW Creatinine 0.6 L Uric Acid 3.2 L Magnesium Lactate Dehydrogenase Albumin 3.0 L Urine pH Urine WBC (Auto) 8.0 H Ur Total Protein 24 Hr Urine Total Protein 02/10/19 02/10/19 02/13/19 09:23 15:45 00:00 WBC Hgb MCV MCH RDW Creatinine Uric Acid Magnesium 5.90 H 5.10 H Lactate Dehydrogenase Albumin Urine pH 8.0 H Urine WBC (Auto) Ur Total Protein 24 Hr Urine Total Protein 02/13/19 02/13/19 00:28 00:28 WBC 18.6 H Hgb 10.0 L MCV 74 L MCH 23 L RDW 20.2 H Creatinine 0.6 L Uric Acid 3.4 L Magnesium Lactate Dehydrogenase 341 H Albumin Urine pH Urine WBC (Auto) Ur Total Protein 24 Hr Urine Total Protein Laboratory Results - last 24 hr 02/10/19 02/13/19 02/13/19 05:36 00:00 00:28 WBC 18.6 H RBC 4.34 Hgb 10.0 L Hct 32.1 MCV 74 L MCH 23 L MCHC 31 RDW 20.2 H Plt Count 322 Creatinine Estimated GFR Uric Acid AST ALT Lactate Dehydrogenase Urine Color Colorless Urine Turbidity Clear Urine pH 8.0 H Ur Specific [place] 1.004 Urine Protein 30 mg/dl Urine Glucose (UA) Neg Urine Ketones Neg Urine Blood Neg Urine Nitrite Neg Urine Bilirubin Neg Urine Urobilinogen < 2.0 Ur Leukocyte Esterase Neg Urine WBC (Auto) < 1.0 Urine RBC (Auto) 3.0 U Epithel Cells (Auto) 1.0 Urine Bacteria (Auto) 1+ Cardiolipid IgG Ab <14 Cardiolipid IgA Ab <11 Cardiolipid IgM Ab <12 02/13/19 00:28 WBC RBC Hgb Hct MCV MCH MCHC RDW Plt Count Creatinine 0.6 L Estimated GFR > 60 Uric Acid 3.4 L AST 30 ALT 17 Lactate Dehydrogenase 341 H Urine Color Urine Turbidity Urine pH Ur Specific [place] Urine Protein Urine Glucose (UA) Urine Ketones Urine Blood Urine Nitrite Urine Bilirubin Urine Urobilinogen Ur Leukocyte Esterase Urine WBC (Auto) Urine RBC (Auto) U Epithel Cells (Auto) Urine Bacteria (Auto) Cardiolipid IgG Ab Cardiolipid IgA Ab Cardiolipid IgM Ab - Results US- obstetric: report reviewed (BPP 06/07 on 02/12/19; and Doppler showed persistent Abnormal waveform)
--- NOTE | 2019-02-13 11:23 | Progress Note ---
Assessment and Plan ASSESSMENT IUP at 30 weeks gestation. Admitted with Chronic hypertension. Rule out superimposed preeclampsia. Ongoing elevated blood pressure. Admitted with: Absent end diastolic velocity. Most recent Doppler: Elevated. Morbid obesity. Previous CS. Single umbilical artery. Marginal Cord insertion. RECOMMENDATIONS: 1. We would recommend continued inpatient management for this patient. 2. Patient is NOT a candidate for outpatient management. 3. Three times BPP and Doppler assessment. 4. Agree with increase in Labetalol. 5. Patient is NOT a candidate for discharge home due to occasional elevated blood pressure and headaches (of unknown etiology). 6. At present; there is NO indication for delivery; however I would monitor c losely for the signs and symptoms of severe preeclampsia noted below. 7. At 30 weeks gestation; it would appear that there is some benefit to an expectant management protocol to prolong gestation in order to improve outcome without increasing maternal morbidity. 8. In a patient with MILD preeclampsia we recommend DELIVERY at 37 weeks. 9. In a patient with SEVERE preeclampsia we recommend DELIVERY either AT DIAGNOSIS or at 34 weeks gestation. Reference: REFERENCE: Medically indicated late- and early-term deliveries. Committee Opinion No. [id number]. [employer]. Obstet Gynecol 2013;121:08163. 10. The indications for discontinuation of expectant management and DELIVERY in this patient would include ANY of the following: heart rate abnormalities, (ie, bradycardia , repetitive late or variable decelerations) Significant new onset proteinuria Thrombocytopenia Hemolysis, Elevation in liver function tests Blood pressure that is very labile or poorly controlled with reasonable doses of intravenous labetalol Symptoms of severe pre-eclampsia epigastric discomfort, headache, dizziness, blurred vision, RUQ pain, seizure. Standard obstetrical indications Thank you for allowing us to participate in the care of this patient. We look forward to the opportunity to assist in her continued management. If you have any questions, we may be reached [phone]. Subjective - Subjective Date of service: 02/13/19 Principal diagnosis: SIUP at 29 6/7weeks with CHTN, IUGR, absent EDF Interval history: As you are aware, this is a 33 year old para 0121 who is currently at 30 weeks gestation based on an CHAKA of 04/25/19 Patient reports: movement normal, no new complaints, no loss of fluid, no vaginal bleeding Patient has been hospitalized due to elevated blood pressure noted in the clinic on ----- and thought to be due to either evolving CHTN or early onset preeclampsia. Patient subsequently was hospitalized on 01/09/19 . She has been followed by [facility] due to morbid obesity, absent end diastolic velocity a previous CS, a single umbilical artery and a marginal cord insertion. Patient does have a history of CHTN. During this she has been on Labetalol Yesterday we increased her Labetalol from 200 BID to 300 BID. Her 24 hour urine reveals 770 mg protein. Current Blood pressure: 181/86 PAST OBSTETRICAL HISTORY: VTOP x 2 Previous CS PAST MEDICAL HISTORY: See reports in patient's chart. CHTN prior to ULTRASOUND AT [facility] BPP: 8/8 FHR: 146 bpm OVERNIGHT BLOOD PRESSURE: During c/o constipation. 225/107 After IV hydralazine: 200/84. RECENT BLOOD PRESSURE VALUES: 146/77, 181/86, 181/86 (improved from last PM. Suboptimally controlled) AVAILABLE LABS: 24 HOUR URINE: 770 mg. WBC: 18.6 Hgb: 10.0 HCT: 32.1 PLT: 322 AST: 30 ALT: 17 Anticardiolipin antibodies: Negative Patient reports: movement normal, no new complaints, no loss of fluid, no vaginal bleeding Objective - Vital Signs Vital Signs: Vital Signs - 12hr 02/13/19 02/13/19 02/13/19 00:34 00:38 02:35 Temperature 98.0 F Pulse Rate 73 73 63 Respiratory 20 Rate Blood Pressure 144/64 189/85 Blood Pressure 144/64 [Right] 02/13/19 02/13/19 02/13/19 04:16 04:20 04:26 Temperature 99.4 F Pulse Rate 73 73 74 Respiratory 18 Rate Blood Pressure 225/107 225/107 200/81 Blood Pressure 225/107 [Right] 02/13/19 02/13/19 02/13/19 04:30 04:36 04:44 Temperature Pulse Rate 71 78 78 Respiratory Rate Blood Pressure 210/88 188/79 188/79 Blood Pressure [Right] 02/13/19 02/13/19 02/13/19 04:48 04:58 05:08 Temperature Pulse Rate 75 87 87 Respiratory Rate Blood Pressure 189/87 195/87 211/93 Blood Pressure [Right] 02/13/19 02/13/19 02/13/19 05:19 05:30 05:56 Temperature Pulse Rate 77 87 109 H Respiratory Rate Blood Pressure 181/77 70/50 136/74 Blood Pressure [Right] 02/13/19 02/13/19 02/13/19 06:09 06:11 06:19 Temperature Pulse Rate 85 85 70 Respiratory Rate Blood Pressure 209/91 201/88 201/86 Blood Pressure [Right] 02/13/19 02/13/19 02/13/19 06:28 08:12 08:13 Temperature 98.0 F Pulse Rate 70 74 Respiratory Rate Blood Pressure 202/92 146/77 Blood Pressure [Right] 02/13/19 02/13/19 10:17 10:19 Temperature Pulse Rate 67 67 Respiratory Rate Blood Pressure 181/86 181/86 Blood Pressure [Right] - Labs Labs: Abnormal Labs 02/09/19 02/09/19 02/09/19 16:01 17:01 17:07 WBC Hgb MCV 73 L MCH 25 L RDW 19.2 H Creatinine Uric Acid Magnesium Lactate Dehydrogenase 245 H Albumin Urine pH Urine WBC (Auto) Ur Total Protein 24 Hr 770.00 H Urine Total Protein 22 H 02/09/19 02/10/19 02/10/19 17:08 05:36 08:03 WBC Hgb MCV MCH RDW Creatinine 0.6 L Uric Acid 3.2 L Magnesium Lactate Dehydrogenase Albumin 3.0 L Urine pH Urine WBC (Auto) 8.0 H Ur Total Protein 24 Hr Urine Total Protein 02/10/19 02/10/19 02/13/19 09:23 15:45 00:00 WBC Hgb MCV MCH RDW Creatinine Uric Acid Magnesium 5.90 H 5.10 H Lactate Dehydrogenase Albumin Urine pH 8.0 H Urine WBC (Auto) Ur Total Protein 24 Hr Urine Total Protein 02/13/19 02/13/19 00:28 00:28 WBC 18.6 H Hgb 10.0 L MCV 74 L MCH 23 L RDW 20.2 H Creatinine 0.6 L Uric Acid 3.4 L Magnesium Lactate Dehydrogenase 341 H Albumin Urine pH Urine WBC (Auto) Ur Total Protein 24 Hr Urine Total Protein Laboratory Results - last 24 hr 02/10/19 02/13/19 02/13/19 05:36 00:00 00:28 WBC 18.6 H RBC 4.34 Hgb 10.0 L Hct 32.1 MCV 74 L MCH 23 L MCHC 31 RDW 20.2 H Plt Count 322 Creatinine Estimated GFR Uric Acid AST ALT Lactate Dehydrogenase Urine Color Colorless Urine Turbidity Clear Urine pH 8.0 H Ur Specific [place] 1.004 Urine Protein 30 mg/dl Urine Glucose (UA) Neg Urine Ketones Neg Urine Blood Neg Urine Nitrite Neg Urine Bilirubin Neg Urine Urobilinogen < 2.0 Ur Leukocyte Esterase Neg Urine WBC (Auto) < 1.0 Urine RBC (Auto) 3.0 U Epithel Cells (Auto) 1.0 Urine Bacteria (Auto) 1+ Cardiolipid IgG Ab <14 Cardiolipid IgA Ab <11 Cardiolipid IgM Ab <12 02/13/19 00:28 WBC RBC Hgb Hct MCV MCH MCHC RDW Plt Count Creatinine 0.6 L Estimated GFR > 60 Uric Acid 3.4 L AST 30 ALT 17 Lactate Dehydrogenase 341 H Urine Color Urine Turbidity Urine pH Ur Specific [place] Urine Protein Urine Glucose (UA) Urine Ketones Urine Blood Urine Nitrite Urine Bilirubin Urine Urobilinogen Ur Leukocyte Esterase Urine WBC (Auto) Urine RBC (Auto) U Epithel Cells (Auto) Urine Bacteria (Auto) Cardiolipid IgG Ab Cardiolipid IgA Ab Cardiolipid IgM Ab
[2019-02-13] MEDS: FEOSOL PO SCH ×2 (11:35→22:08)
[2019-02-14] MEDS: APRESOLINE IV PRN ×2 (02:06→23:27)
[2019-02-14] MEDS: TYLENOL PO PRN (09:16)
--- NOTE | 2019-02-14 09:40 | Progress Note ---
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 She is a patient of [facility] and has been co-managed with [facility]. She was seen at [facility] on 02/09/19 and sonogram showed the above findings. On admission, her BP was elevated and toxemia labs were normal. 24-hr urine was 770mg protein. She is on Labetolol 300mg BID. She was given Celestone for FLM (completed on 02/10/19) and magnesium sulfate for neuroprotection. Follow cord doppler remains unchanged. Patient reports good movement. Today she denies headaches, but complains of crampy abdominal pains. Patient reports: movement normal, no new complaints, no loss of fluid, no vaginal bleeding Objective - Vital Signs Vital Signs: Vital Signs - 12hr 02/13/19 02/13/19 02/13/19 21:39 21:43 21:44 Temperature Pulse Rate 80 74 85 Respiratory Rate Blood Pressure 142/71 O2 Sat by Pulse 93 94 Oximetry 02/13/19 02/13/19 02/13/19 21:45 21:48 21:49 Temperature Pulse Rate 80 82 88 Respiratory Rate Blood Pressure 148/70 O2 Sat by Pulse 94 94 Oximetry 02/13/19 02/13/19 02/13/19 21:53 21:54 21:58 Temperature Pulse Rate 74 75 75 Respiratory Rate Blood Pressure 146/69 147/72 O2 Sat by Pulse 93 Oximetry 02/13/19 02/13/19 02/13/19 21:59 22:10 22:11 Temperature Pulse Rate 86 65 67 Respiratory Rate Blood Pressure 170/70 O2 Sat by Pulse 93 95 94 Oximetry 02/13/19 02/13/19 02/13/19 22:15 22:16 22:20 Temperature Pulse Rate 66 80 78 Respiratory Rate Blood Pressure O2 Sat by Pulse 95 87 95 Oximetry 02/13/19 02/13/19 02/13/19 22:23 22:25 22:28 Temperature Pulse Rate 74 71 62 Respiratory Rate Blood Pressure 197/100 O2 Sat by Pulse 96 94 Oximetry 02/13/19 02/13/19 02/13/19 22:29 22:30 22:33 Temperature Pulse Rate 68 71 71 Respiratory Rate Blood Pressure 154/68 154/79 O2 Sat by Pulse 95 Oximetry 02/13/19 02/13/19 02/13/19 22:34 22:35 23:35 Temperature 98.2 F Pulse Rate 90 72 Respiratory 18 Rate Blood Pressure O2 Sat by Pulse 94 95 Oximetry 02/14/19 02/14/19 02/14/19 00:27 00:32 01:25 Temperature Pulse Rate 75 97 H 99 H Respiratory Rate Blood Pressure 147/91 O2 Sat by Pulse 94 95 Oximetry 02/14/19 02/14/19 02/14/19 01:28 01:33 01:38 Temperature Pulse Rate 89 86 91 H Respiratory Rate Blood Pressure 164/87 178/87 183/79 O2 Sat by Pulse Oximetry 02/14/19 02/14/19 02/14/19 01:43 01:48 01:53 Temperature Pulse Rate 92 H 86 86 Respiratory Rate Blood Pressure 181/79 184/81 172/74 O2 Sat by Pulse Oximetry 02/14/19 02/14/19 02/14/19 02:06 02:07 02:12 Temperature Pulse Rate 86 74 81 Respiratory Rate Blood Pressure 181/77 181/77 166/79 O2 Sat by Pulse Oximetry 02/14/19 02/14/19 02/14/19 02:18 02:23 02:28 Temperature Pulse Rate 83 72 86 Respiratory Rate Blood Pressure 142/65 140/61 150/66 O2 Sat by Pulse Oximetry 02/14/19 02/14/19 02/14/19 02:33 04:13 04:18 Temperature 98.6 F Pulse Rate 89 69 73 Respiratory 20 Rate Blood Pressure 174/76 174/78 169/79 O2 Sat by Pulse Oximetry 02/14/19 02/14/19 02/14/19 04:23 09:12 09:17 Temperature Pulse Rate 71 65 72 Respiratory Rate Blood Pressure 167/76 O2 Sat by Pulse 96 95 Oximetry 02/14/19 02/14/19 02/14/19 09:19 09:22 09:25 Temperature Pulse Rate 73 73 74 Respiratory Rate Blood Pressure O2 Sat by Pulse 94 95 94 Oximetry 02/14/19 02/14/19 02/14/19 09:27 09:31 09:32 Temperature Pulse Rate 90 76 71 Respiratory Rate Blood Pressure O2 Sat by Pulse 94 94 94 Oximetry - Exam Breasts: deferred Abdomen: Present: normal appearance, soft Uterus: Present: normal FHR: category 1 Uterine Contraction Monitor Mode: External Uterine Contraction Pattern: Absent - Labs Labs: Abnormal Labs 02/09/19 02/09/19 02/09/19 16:01 17:01 17:07 WBC Hgb MCV 73 L MCH 25 L RDW 19.2 H Creatinine Uric Acid Magnesium Lactate Dehydrogenase 245 H Albumin Urine pH Urine WBC (Auto) Ur Total Protein 24 Hr 770.00 H Urine Total Protein 22 H 02/09/19 02/10/19 02/10/19 17:08 05:36 08:03 WBC Hgb MCV MCH RDW Creatinine 0.6 L Uric Acid 3.2 L Magnesium Lactate Dehydrogenase Albumin 3.0 L Urine pH Urine WBC (Auto) 8.0 H Ur Total Protein 24 Hr Urine Total Protein 02/10/19 02/10/19 02/13/19 09:23 15:45 00:00 WBC Hgb MCV MCH RDW Creatinine Uric Acid Magnesium 5.90 H 5.10 H Lactate Dehydrogenase Albumin Urine pH 8.0 H Urine WBC (Auto) Ur Total Protein 24 Hr Urine Total Protein 02/13/19 02/13/19 00:28 00:28 WBC 18.6 H Hgb 10.0 L MCV 74 L MCH 23 L RDW 20.2 H Creatinine 0.6 L Uric Acid 3.4 L Magnesium Lactate Dehydrogenase 341 H Albumin Urine pH Urine WBC (Auto) Ur Total Protein 24 Hr Urine Total Protein Laboratory Results - last 24 hr 02/10/19 02/10/19 05:36 05:36 Lupus Anticoagulant see below [id number] 2.42
[2019-02-14] MEDS: NORMODYNE PO SCH ×2 (10:01→21:06)
[2019-02-14] MEDS ORDERED: MILK OF MAGNESIA PO PRN (11:30)
[2019-02-14] MEDS ORDERED: MIRALAX 3350 PO PRN (12:00)
[2019-02-14] MEDS: FEOSOL PO SCH ×2 (16:29→21:06)
[2019-02-14] MEDS ORDERED: PROCARDIA*For Tocolysis only PO ONE (23:55)
[2019-02-15] MEDS: APRESOLINE IV PRN ×3 (02:04→15:00)
--- NOTE | 2019-02-15 08:22 | Progress Note ---
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 Current Visit: Yes Status: Chronic (4) 30 weeks gestation of Onset Date: 02/15/19 Current Visit: Yes Status: Acute Plan to address problem: A: IUP @ 30 1/7 weeks - s/p Steroids and Magnesium sulfate IUGR with some end-diastolic flow Chronic hypertension - better controlled on Labetolol 300mg BID and IV hydralazine 2 vessel cord with Marginal insertion AMA Morbid Obesity P: Continue present management as per [facility] Will deliver with reverse flow or compromise Subjective - Subjective Date of service: 02/15/19 Principal diagnosis: SIUP at 30 1/7weeks with CHTN, IUGR, absent EDF Interval history: Patient is a 33 year old EDC 04/25/19 at 30 weeks and 1 days gestation who was admitted 6 days ago for elevated BP, IUGR, absent EDF. She is a patient of [place] and has been co-managed with [facility]. She was seen at [facility] on 02/09/19 and sonogram showed the above findings. On admission, her BP was elevated and toxemia labs were normal. 24-hr urine was 770mg protein. She is on Labetolol 300mg BID. She was given Celestone for FLM (completed on 02/10/19) and magnesium sulfate for neuroprotection. Follow up cord doppler showed segments of end-diastolic flow and other segments showed no end-diastolic flow. Patient reports good movement. Today she denies headaches or abdominal pains. Patient reports: movement normal, no new complaints, no loss of fluid, no vaginal bleeding Objective - Vital Signs Vital Signs: Vital Signs - 12hr 02/14/19 02/14/19 02/14/19 20:38 20:47 21:06 Temperature 98.8 F Pulse Rate 68 Respiratory 18 Rate Blood Pressure 189/98 Blood Pressure 187/86 195/91 [Left] O2 Sat by Pulse 99 Oximetry 02/14/19 02/14/19 02/14/19 22:16 23:16 23:40 Temperature Pulse Rate 78 70 67 Respiratory Rate Blood Pressure 212/108 236/109 217/107 Blood Pressure [Left] O2 Sat by Pulse Oximetry 02/14/19 02/15/19 02/15/19 23:55 00:10 00:40 Temperature Pulse Rate 69 68 72 Respiratory Rate Blood Pressure 200/101 179/87 140/73 Blood Pressure [Left] O2 Sat by Pulse Oximetry 02/15/19 02/15/19 02/15/19 00:55 01:10 01:25 Temperature Pulse Rate 70 67 71 Respiratory Rate Blood Pressure 164/83 168/86 157/84 Blood Pressure [Left] O2 Sat by Pulse Oximetry 02/15/19 02/15/19 02/15/19 01:40 01:55 02:04 Temperature Pulse Rate 82 70 70 Respiratory Rate Blood Pressure 155/86 161/92 161/92 Blood Pressure [Left] O2 Sat by Pulse Oximetry 02/15/19 02/15/19 02/15/19 02:07 02:10 02:25 Temperature Pulse Rate 70 80 85 Respiratory Rate Blood Pressure 169/95 151/76 149/78 Blood Pressure [Left] O2 Sat by Pulse Oximetry 02/15/19 02/15/19 02/15/19 02:40 03:06 03:10 Temperature Pulse Rate 83 72 66 Respiratory Rate Blood Pressure 150/70 128/65 139/74 Blood Pressure [Left] O2 Sat by Pulse Oximetry 02/15/19 02/15/19 02/15/19 03:25 03:40 03:55 Temperature Pulse Rate 71 88 61 Respiratory Rate Blood Pressure 138/74 131/71 143/76 Blood Pressure [Left] O2 Sat by Pulse Oximetry 02/15/19 02/15/19 02/15/19 04:10 04:25 04:40 Temperature Pulse Rate 72 78 82 Respiratory Rate Blood Pressure 143/77 144/76 169/82 Blood Pressure [Left] O2 Sat by Pulse Oximetry 02/15/19 02/15/19 02/15/19 04:55 05:10 05:25 Temperature Pulse Rate 69 68 72 Respiratory Rate Blood Pressure 165/83 150/72 150/74 Blood Pressure [Left] O2 Sat by Pulse Oximetry 02/15/19 02/15/19 02/15/19 05:40 05:55 06:10 Temperature Pulse Rate 86 85 68 Respiratory Rate Blood Pressure 155/77 162/84 163/83 Blood Pressure [Left] O2 Sat by Pulse Oximetry 02/15/19 02/15/19 02/15/19 06:25 06:30 06:40 Temperature Pulse Rate 71 67 66 Respiratory Rate Blood Pressure 161/87 166/91 154/80 Blood Pressure [Left] O2 Sat by Pulse Oximetry 02/15/19 02/15/19 02/15/19 06:55 07:10 07:25 Temperature Pulse Rate 85 81 80 Respiratory Rate Blood Pressure 136/71 146/75 149/76 Blood Pressure [Left] O2 Sat by Pulse Oximetry - Exam Abdomen: Present: normal appearance, soft FHR: category 1 Uterine Contraction Monitor Mode: External Uterine Contraction Pattern: Absent - Labs Labs: Abnormal Labs 02/09/19 02/09/19 02/09/19 16:01 17:01 17:07 WBC Hgb MCV 73 L MCH 25 L RDW 19.2 H Creatinine Uric Acid Magnesium Lactate Dehydrogenase 245 H Albumin Urine pH Urine WBC (Auto) Ur Total Protein 24 Hr 770.00 H Urine Total Protein 22 H 02/09/19 02/10/19 02/10/19 17:08 05:36 08:03 WBC Hgb MCV MCH RDW Creatinine 0.6 L Uric Acid 3.2 L Magnesium Lactate Dehydrogenase Albumin 3.0 L Urine pH Urine WBC (Auto) 8.0 H Ur Total Protein 24 Hr Urine Total Protein 02/10/19 02/10/19 02/13/19 09:23 15:45 00:00 WBC Hgb MCV MCH RDW Creatinine Uric Acid Magnesium 5.90 H 5.10 H Lactate Dehydrogenase Albumin Urine pH 8.0 H Urine WBC (Auto) Ur Total Protein 24 Hr Urine Total Protein 02/13/19 02/13/19 00:28 00:28 WBC 18.6 H Hgb 10.0 L MCV 74 L MCH 23 L RDW 20.2 H Creatinine 0.6 L Uric Acid 3.4 L Magnesium Lactate Dehydrogenase 341 H Albumin Urine pH Urine WBC (Auto) Ur Total Protein 24 Hr Urine Total Protein Laboratory Results - last 24 hr 02/10/19 02/10/19 02/10/19 05:36 05:36 07:37 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
--- NOTE | 2019-02-15 09:20 | Ultrasound Report ---
PROCEDURE: US OB BPP WO NON-STRESS TECHNIQUE: Sonographic evaluation for breathing, movement, tone, and amniotic flui d volume was performed. HISTORY: IUP @ 30 weeks; IUGR; 2V cord evaluate well-being COMPARISONS: None . FINDINGS: FETUS TR: 45 bpm Amniotic fluid volume Normal-score 2. At least one vertical pocket >2 cm or more in vertical axis . breathing: Normal-score 2 . movement: Normal-score 2 . tone: Normal-score 2 . Score: 8 of 8 . IMPRESSION: Normal biophysical profile . 06/07. This document is electronically signed by Jermaine Ramirez MD., February 14 2019 04:36:22 PM ET
--- NOTE | 2019-02-15 09:20 | Ultrasound Report ---
PROCEDURE: US OB VELOCIMETRY UMBILCAL ART TECHNIQUE: Doppler evaluation of the umbilical artery was performed. Calculations were made. HISTORY: IUP @ 30 weeks; IUGR; 2V cord . -induced hypertension COMPARISON: None FINDINGS: On some of the samplings obtained there is end-diastolic flow visualized in the sampling. Resistive i ndex is mildly elevated at 0.18. The systolic to diastolic ratio is elevated, 5.46. Another sampling there is no end-diastolic flow visualized in the pulsatility index was calculated at 1.7 and 1.8. IMPRESSION: Elevated systolic to diastolic ratio. Resistive index is also mildly elevated. As indicated above and diastolic flow is seen on some of the sampling traces of the umbilical artery although on some khai ng there was no end diastolic flow. Pulsatility index as described. This document is electronically signed by Jermaine Ramirez MD., February 14 2019 04:43:49 PM ET
[2019-02-15] MEDS: NORMODYNE PO SCH ×2 (10:03→22:07)
[2019-02-15] MEDS: FEOSOL PO SCH ×2 (10:03→22:07)
[2019-02-16] MEDS: APRESOLINE IV PRN ×2 (00:52→04:32)
--- NOTE | 2019-02-16 08:54 | Progress Note ---
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 Current Visit: Yes Status: Chronic (4) 30 weeks gestation of Onset Date: 02/15/19 Current Visit: Yes Status: Acute Plan to address problem: A: IUP @ 30 2/7 weeks - s/p Steroids and Magnesium sulfate IUGR with some end-diastolic flow Chronic hypertension - better controlled on Labetolol 300mg BID and IV hydralazine 2 vessel cord with Marginal insertion AMA Morbid Obesity P: Continue present management as per [facility] Will deliver with reverse flow or compromise Subjective - Subjective Date of service: 02/16/19 Principal diagnosis: SIUP at 30 2/7weeks with CHTN, IUGR, absent EDF Interval history: Patient is a 33 year old EDC 04/25/19 at 30 weeks and 2 days gestation who was admitted 7 days ago for elevated BP, IUGR, absent EDF. She is a patient of [place] and has been co-managed with [facility]. She was seen at [facility] on 02/09/19 and sonogram showed the above findings. On admission, her BP was elevated and toxemia labs were normal. 24-hr urine was 770mg protein. She is on Labetolol 300mg BID. She was given Celestone for FLM (completed on 02/10/19) and magnesium sulfate for neuroprotection. Follow up cord doppler showed segments of end-diastolic flow and other segments showed no end-diastolic flow. Patient reports good movement. Today she denies headaches or abdominal pains. Patient reports: movement normal, no new complaints, no loss of fluid, no vaginal bleeding Objective - Vital Signs Vital Signs: Vital Signs - 12hr 02/15/19 02/15/19 02/15/19 21:06 22:07 22:10 Temperature Pulse Rate 67 78 78 Respiratory Rate Blood Pressure 134/80 128/59 128/59 02/15/19 02/15/19 02/15/19 22:36 23:06 23:36 Temperature Pulse Rate 72 71 68 Respiratory Rate Blood Pressure 140/76 147/84 167/91 02/15/19 02/15/1902/16/19 23:47 23:48 00:06 Temperature 98.0 F Pulse Rate 70 58 L Respiratory 18 Rate Blood Pressure 152/83 172/100 02/16/19 02/16/19 02/16/19 00:36 00:52 00:56 Temperature Pulse Rate 72 72 73 Respiratory Rate Blood Pressure 179/91 179/91 182/91 02/16/19 02/16/19 02/16/19 01:01 01:06 01:11 Temperature Pulse Rate 73 84 85 Respiratory Rate Blood Pressure 149/77 150/81 160/82 02/16/19 02/16/19 02/16/19 01:36 02:06 02:36 Temperature Pulse Rate 77 76 72 Respiratory Rate Blood Pressure 144/74 162/78 153/74 02/16/19 02/16/19 02/16/19 03:06 03:36 04:06 Temperature Pulse Rate 81 94 H 69 Respiratory Rate Blood Pressure 154/74 164/81 181/86 02/16/19 02/16/19 02/16/19 04:24 04:32 04:36 Temperature Pulse Rate 79 79 80 Respiratory Rate Blood Pressure 171/78 171/78 156/68 02/16/19 02/16/19 02/16/19 04:42 04:50 05:07 Temperature Pulse Rate 86 83 81 Respiratory Rate Blood Pressure 149/69 139/59 139/68 02/16/19 02/16/19 02/16/19 05:36 06:06 06:36 Temperature Pulse Rate 81 86 86 Respiratory Rate Blood Pressure 140/70 137/72 160/79 02/16/19 02/16/19 02/16/19 07:06 07:36 08:06 Temperature Pulse Rate 77 72 96 H Respiratory Rate Blood Pressure 161/79 155/74 180/88 02/16/19 08:36 Temperature Pulse Rate 72 Respiratory Rate Blood Pressure 164/80 - Exam Abdomen: Present: normal appearance, soft FHR: category 1 Uterine Contraction Monitor Mode: External Uterine Contraction Pattern: Absent - Labs Labs: Abnormal Labs 02/09/19 02/09/19 02/09/19 16:01 17:01 17:07 WBC Hgb MCV 73 L MCH 25 L RDW 19.2 H Creatinine Uric Acid Magnesium Lactate Dehydrogenase 245 H Albumin Urine pH Urine WBC (Auto) Ur Total Protein 24 Hr 770.00 H Urine Total Protein 22 H 02/09/19 02/10/19 02/10/19 17:08 05:36 08:03 WBC Hgb MCV MCH RDW Creatinine 0.6 L Uric Acid 3.2 L Magnesium Lactate Dehydrogenase Albumin 3.0 L Urine pH Urine WBC (Auto) 8.0 H Ur Total Protein 24 Hr Urine Total Protein 02/10/19 02/10/19 02/13/19 09:23 15:45 00:00 WBC Hgb MCV MCH RDW Creatinine Uric Acid Magnesium 5.90 H 5.10 H Lactate Dehydrogenase Albumin Urine pH 8.0 H Urine WBC (Auto) Ur Total Protein 24 Hr Urine Total Protein 02/13/19 02/13/19 00:28 00:28 WBC 18.6 H Hgb 10.0 L MCV 74 L MCH 23 L RDW 20.2 H Creatinine 0.6 L Uric Acid 3.4 L Magnesium Lactate Dehydrogenase 341 H Albumin Urine pH Urine WBC (Auto) Ur Total Protein 24 Hr Urine Total Protein
--- NOTE | 2019-02-16 12:47 | Consultation ---
History of Present Illness Consult date: 02/16/19 Reason for consult: other (CHTN with Suspected Superimposed Preeclampsia and Abnormal Umbilical Cord Dopplers) History of present illness: Ms. Islas is a 33yo admitted to [facility] due to poorly controlled CHTN with susp ected super imposed Preeclampsia and AEDF. She is being followed by [facility] for AMA, MO, 2 vessel cord, IUGR, and Marginal Cord Insertion. She is s/p steriods and magnesium sulfate. She denies PIH symptoms. She admits to positive movements. She denies PTL symptoms, leaking of fluid, and bleeding. Past History Past Medical History: hypertension Past Surgical History: section, other - Obstetrical History : 5 Medications and Allergies Allergies Allergy/AdvReac Type Severity Reaction Status Date / Time No Known Allergies Allergy Unverified 02/09/19 13:30 Home Medications Medication Instructions Recorded Confirmed Last Taken Type Labetalol [Normodyne TAB] 100 mg PO BID 02/09/19 02/09/19 02/09/19 History 1 Pnv,Calcium 72/Iron/Folic Acid 1 each PO DAILY 02/09/19 02/09/19 02/09/19 History [Pnv Plus Multivit Tab] Active Meds: Active Medications Acetaminophen (Tylenol) 650 mg PO Q4H PRN PRN Reason: Pain MILD(1-3)/Fever >100.5/ESTEBAN Last Admin: 02/14/19 09:16 Dose: 650 mg Documented by: Diphenhydramine HCl (Benadryl) 25 mg PO Q6H PRN PRN Reason: Itching Docusate Sodium (Colace) 100 mg PO Q12H PRN PRN Reason: Constipation Ferrous Sulfate (Feosol) 325 mg PO BID KATEY Last Admin: 02/15/19 22:07 Dose: Not Given Documented by: Hydralazine HCl (Apresoline) 10 mg IV Q4HR PRN PRN Reason: Blood Pressure Last Admin: 02/16/19 04:32 Dose: 10 mg Documented by: Lactated Ringer's (Lactated Ringers) 1,000 mls @ 125 mls/hr IV DIRECT [facility]ATEY Last Admin: 02/13/19 00:29 Dose: 75 mls/hr Documented by: Magnesium Sulfate (Magnesium Sulfate 40gm/1000ml) 40 gm in 1,000 mls @ 50 mls/hr IV DIRECT [facility] Last Infusion: 02/10/19 21:25 Dose: Infused Documented by: Labetalol HCl (Normodyne) 300 mg PO BID [facility] Last Admin: 02/15/19 22:07 Dose: 300 mg Documented by: Magnesium Hydroxide (Milk Of Magnesia) 30 ml PO Q4H PRN PRN Reason: Constipation Ondansetron HCl (Zofran) 4 mg IV Q6H PRN PRN Reason: Nausea And Vomiting Polyethylene Glycol (Miralax 3350) 17 gm PO QDAY PRN PRN Reason: Constipation Review of Systems Constitutional: other (denies fatigue, fevers) Eyes: other (denies visual disturbances) Ears, nose, mouth and throat: deferred Cardiovascular: other (denies chest pain, palpitations, edema) Respiratory: other (denies wheezing, coughing, SOB) Breasts: deferred Gastrointestinal: other (denies diarrhea, constipation, abdominal pain, RUQ pain) Genitourinary: other (denies contractions, leaking of fluid, and bleeding.) Rectal Exam: deferred Integumentary: deferred Neurological: other (denies headaches) - Vital Signs Vital signs: Vital Signs Pulse BP 67 150/75 02/09/19 13:27 02/09/19 13:27 Temp Pulse Resp BP Pulse Ox 98.0 F 70 18 137/80 98 02/15/19 23:48 02/16/19 12:42 02/15/19 23:48 02/16/19 11:32 02/16/19 12:42 - Physical Exam Breasts: Positive: deferred Cardiovascular: Regular rate, Normal S1, Normal S2 Lungs: Positive: Clear to auscultation, Normal air movement Abdomen: Positive: soft, other (gravid, nontender) Extremities: Positive: normal, edema (1+ edema) Deep Tendon Reflex Grade: Normal but brisk +3 Results Result Diagrams: 02/13/19 00:28 02/13/19 00:28 All other labs normal. Assessment and Plan A IUP at 30+ weeks gestation- [facility] 04/25/19 CHTN with suspected Superimposed Preeclampsia- 24 hour urine result 770 Labile BPs- recent BPs 130s/70s, 171/78, 181/80- managed on Labetalol 300mg Denies PIH symptoms Umbilical dopplers from 02/14/19- elevated at 5.46, BPP 8/8 AMA [place] 2 vessel Cord Marginal Cord Insertion IUGR P 1. Continue with current inpatient plan of care 2. BPP and Dopplers three times weekly (MWF) 3. Patient is NOT a candidate for discharge home due to occasional elevated blood pressure and headaches (of unknown etiology). 4. Monitoring for worsening PIH symptoms and distress. 5. Notify NICU as indicated 6.No indication for delivery at this time. In a patient with MILD preeclampsia we recommend DELIVERY at 37 weeks. In a patient with SEVERE preeclampsia we recommend DELIVERY either AT DIAGNOSIS or at 34 weeks gestation. 7. The indications for discontinuation of expectant management and DELIVERY in this patient would include ANY of the following: heart rate abnormalities, (ie, bradycardia , repetitive late or variable decelerations) Significant new onset proteinuria Thrombocytopenia Hemolysis, Elevation in liver function tests Blood pressure that is very labile or poorly controlled with reasonable doses of intravenous labetalol Symptoms of severe pre-eclampsia epigastric discomfort, headache, dizziness, blurred vision, RUQ pain, seizure. Standard obstetrical indications
[2019-02-16] MEDS: FEOSOL PO SCH (22:16)
[2019-02-16] MEDS: NORMODYNE PO SCH (22:17)
--- NOTE | 2019-02-17 08:32 | Progress Note ---
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 Current Visit: Yes Status: Chronic (4) 30 weeks gestation of Onset Date: 02/15/19 Current Visit: Yes Status: Acute Plan to address problem: A: IUP @ 30 3/7 weeks - s/p Steroids and Magnesium sulfate IUGR with some end-diastolic flow Chronic hypertension - better controlled on Labetolol 300mg BID and IV hydralazine 2 vessel cord with Marginal insertion AMA Morbid Obesity P: Continue present management as per [facility] Will deliver with reverse flow or compromise Subjective - Subjective Date of service: 02/17/19 Principal diagnosis: SIUP at 30 3/7weeks with CHTN, IUGR, absent EDF Interval history: Patient is a 33 year old EDC 04/25/19 at 30 weeks and 3 days gestation who was admitted 8 days ago for elevated BP, IUGR, absent EDF. She is a patient of [facility] and has been co-managed with [facility]. She was seen at [facility] on 02/09/19 and sonogram showed the above findings. On admission, her BP was elevated and toxemia labs were normal. 24-hr urine was 770mg protein. She is on Labetolol 300mg BID. She was given Celestone for FLM (completed on 02/10/19) and magnesium sulfate for neuroprotection. Follow up cord doppler showed segments of end-diastolic flow and other segments showed no end-diastolic flow. Patient reports good movement. Today she denies headaches or abdominal pains. Patient reports: movement normal, no new complaints, no loss of fluid, no vaginal bleeding Objective - Vital Signs Vital Signs: Vital Signs - 12hr 02/16/19 02/16/19 02/16/19 20:52 20:53 20:56 Temperature 98.1 F Pulse Rate 72 83 66 Respiratory 18 Rate Blood Pressure 139/90 Blood Pressure 139/90 [Left] O2 Sat by Pulse 98 98 Oximetry 02/16/19 02/16/19 02/16/19 20:58 22:15 22:17 Temperature Pulse Rate 69 60 64 Respiratory Rate Blood Pressure 173/94 173/94 Blood Pressure [Left] O2 Sat by Pulse 98 Oximetry 02/16/19 02/17/19 02/17/19 22:19 00:24 00:27 Temperature Pulse Rate 65 63 70 Respiratory Rate Blood Pressure 175/102 182/94 Blood Pressure [Left] O2 Sat by Pulse 98 Oximetry 02/17/19 02/17/19 02/17/19 00:28 00:30 04:53 Temperature 98.6 F Pulse Rate 75 68 98 H Respiratory 18 Rate Blood Pressure 162/89 Blood Pressure 162/89 [Left] O2 Sat by Pulse 98 96 Oximetry 02/17/19 02/17/19 02/17/19 04:54 04:55 04:57 Temperature 98.3 F Pulse Rate 71 83 Respiratory 18 Rate Blood Pressure 186/84 176/79 Blood Pressure 176/79 156/80 [Left] O2 Sat by Pulse 96 Oximetry - Exam Abdomen: Present: normal appearance, soft FHR: category 1 Uterine Contraction Monitor Mode: External Uterine Contraction Pattern: Absent - Labs Labs: Abnormal Labs 02/09/19 02/09/19 02/09/19 16:01 17:01 17:07 WBC Hgb MCV 73 L MCH 25 L RDW 19.2 H Creatinine Uric Acid Magnesium Lactate Dehydrogenase 245 H Albumin Urine pH Urine WBC (Auto) Ur Total Protein 24 Hr 770.00 H Urine Total Protein 22 H 02/09/19 02/10/19 02/10/19 17:08 05:36 08:03 WBC Hgb MCV MCH RDW Creatinine 0.6 L Uric Acid 3.2 L Magnesium Lactate Dehydrogenase Albumin 3.0 L Urine pH Urine WBC (Auto) 8.0 H Ur Total Protein 24 Hr Urine Total Protein 02/10/19 02/10/19 02/13/19 09:23 15:45 00:00 WBC Hgb MCV MCH RDW Creatinine Uric Acid Magnesium 5.90 H 5.10 H Lactate Dehydrogenase Albumin Urine pH 8.0 H Urine WBC (Auto) Ur Total Protein 24 Hr Urine Total Protein 02/13/19 02/13/19 00:28 00:28 WBC 18.6 H Hgb 10.0 L MCV 74 L MCH 23 L RDW 20.2 H Creatinine 0.6 L Uric Acid 3.4 L Magnesium Lactate Dehydrogenase 341 H Albumin Urine pH Urine WBC (Auto) Ur Total Protein 24 Hr Urine Total Protein
[2019-02-17] MEDS: FEOSOL PO SCH ×2 (09:48→22:00)
[2019-02-17] MEDS: NORMODYNE PO SCH ×2 (09:48→22:00)
[2019-02-17] MEDS: APRESOLINE IV PRN (11:18)
--- NOTE | 2019-02-17 11:54 | Progress Note ---
Assessment and Plan ASSESSMENT IUP at 30+ weeks gestation. Admitted with Chronic hypertension. Rule out superimposed preeclampsia. Ongoing elevated blood pressure. Admitted with: Absent end diastolic velocity. Most recent Doppler: Elevated. Morbid obesity. Previous CS. Single umbilical artery. Marginal Cord insertion. RECOMMENDATIONS: 1. We would recommend continued inpatient management for this patient. 2. Patient is NOT a candidate for outpatient management. 3. Three times BPP and Doppler assessment. 4. Agree with increase in Labetalol. 5. Patient is NOT a candidate for discharge home due to occasional elevated blood pressure and headaches (of unknown etiology). 6. At present; there is NO indication for delivery; however I would monitor closely for the signs and symptoms of severe preeclampsia noted below. 7. At 30 weeks gestation; it would appear that there is some benefit to an expectant management protocol to prolong gestation in order to improve outcome without increasing maternal morbidity. 8. In a patient with MILD preeclampsia we recommend DELIVERY at 37 weeks. 9. In a patient with SEVERE preeclampsia we recommend DELIVERY either AT DIAGNOSIS or at 34 weeks gestation. Reference: REFERENCE: Medically indicated late- and early-term deliveries. Committee Opinion No. [id number]. [employer]. Obstet Gynecol 2013;121:63803. 10. The indications for discontinuation of expectant management and DELIVERY in this patient would include ANY of the following: heart rate abnormalities, (ie, bradycardia , repetitive late or variable decelerations) Significant new onset proteinuria Thrombocytopenia Hemolysis, Elevation in liver function tests Blood pressure that is very labile or poorly controlled with reasonable doses of intravenous labetalol Symptoms of severe pre-eclampsia epigastric discomfort, headache, dizziness, blurred vision, RUQ pain, seizure. Standard obstetrical indications Thank you for allowing us to participate in the care of this patient. We look forward to the opportunity to assist in her continued management. If you have any questions, we may be reached [phone]. Wilber Roman M.D. Subjective - Subjective Date of service: 02/17/19 Principal diagnosis: SIUP at 30 3/7weeks with CHTN, IUGR, absent EDF Interval history: As you are aware, this is a 33 year old para 0121 who is currently at 30+ weeks gestation based on an CHAKA of 04/25/19 Patient reports: movement normal, no new complaints, no loss of fluid, no vaginal bleeding Patient has been hospitalized due to elevated blood pressure noted in the clinic on ----- and thought to be due to either evolving CHTN or early onset preeclampsia. Patient subsequently was hospitalized on 01/09/19 . She has been followed by [facility] due to morbid obesity, absent end diastolic velocity a previous CS, a single umbilical artery and a marginal cord insertion. Patient does have a history of CHTN. During this she has been on Labetalol Yesterday we increased her Labetalol from 200 BID to 300 BID. Her 24 hour urine reveals 770 mg protein. Current Blood pressure: 181/86 PAST OBSTETRICAL HISTORY: VTOP x 2 Previous CS PAST MEDICAL HISTORY: See reports in patient's chart. CHTN prior to ULTRASOUND AT [facility] BPP: 8/8 FHR: 146 bpm OVERNIGHT BLOOD PRESSURE: During c/o constipation. 225/107 After IV hydralazine: 200/84. Patient reports: movement normal, no new complaints, no loss of fluid, no vaginal bleeding Objective - Vital Signs Vital Signs: Vital Signs - 12hr 02/17/19 02/17/19 02/17/19 00:24 00:27 00:28 Temperature Pulse Rate 63 70 75 Respiratory Rate Blood Pressure 182/94 162/89 Blood Pressure [Left] O2 Sat by Pulse 98 Oximetry 02/17/19 02/17/19 02/17/19 00:30 04:53 04:54 Temperature 98.6 F Pulse Rate 68 98 H 71 Respiratory 18 Rate Blood Pressure 186/84 Blood Pressure 162/89 [Left] O2 Sat by Pulse 98 96 Oximetry 02/17/19 02/17/19 02/17/19 04:55 04:57 09:44 Temperature 98.3 F Pulse Rate 83 73 Respiratory 18 Rate Blood Pressure 176/79 186/87 Blood Pressure 176/79 156/80 [Left] O2 Sat by Pulse 96 Oximetry 02/17/19 02/17/19 02/17/19 09:48 11:08 11:17 Temperature Pulse Rate 73 70 64 Respiratory Rate Blood Pressure 186/87 183/88 175/86 Blood Pressure [Left] O2 Sat by Pulse Oximetry 02/17/19 02/17/19 02/17/19 11:18 11:22 11:27 Temperature Pulse Rate 64 67 68 Respiratory Rate Blood Pressure 183/88 160/78 157/80 Blood Pressure [Left] O2 Sat by Pulse Oximetry 02/17/19 02/17/19 11:32 11:51 Temperature Pulse Rate 70 70 Respiratory Rate Blood Pressure 155/82 165/82 Blood Pressure [Left] O2 Sat by Pulse Oximetry - Labs Labs: Abnormal Labs 02/09/19 02/09/19 02/09/19 16:01 17:01 17:07 WBC Hgb MCV 73 L MCH 25 L RDW 19.2 H Creatinine Uric Acid Magnesium Lactate Dehydrogenase 245 H Albumin Urine pH Urine WBC (Auto) Ur Total Protein 24 Hr 770.00 H Urine Total Protein 22 H 02/09/19 02/10/19 02/10/19 17:08 05:36 08:03 WBC Hgb MCV MCH RDW Creatinine 0.6 L Uric Acid 3.2 L Magnesium Lactate Dehydrogenase Albumin 3.0 L Urine pH Urine WBC (Auto) 8.0 H Ur Total Protein 24 Hr Urine Total Protein 02/10/19 02/10/19 02/13/19 09:23 15:45 00:00 WBC Hgb MCV MCH RDW Creatinine Uric Acid Magnesium 5.90 H 5.10 H Lactate Dehydrogenase Albumin Urine pH 8.0 H Urine WBC (Auto) Ur Total Protein 24 Hr Urine Total Protein 02/13/19 02/13/19 00:28 00:28 WBC 18.6 H Hgb 10.0 L MCV 74 L MCH 23 L RDW 20.2 H Creatinine 0.6 L Uric Acid 3.4 L Magnesium Lactate Dehydrogenase 341 H Albumin Urine pH Urine WBC (Auto) Ur Total Protein 24 Hr Urine Total Protein
[2019-02-18] MEDS: APRESOLINE IV PRN ×3 (02:16→22:56)
[2019-02-18] MEDS: PROCARDIA XL PO SCH ×2 (03:15→09:46)
[2019-02-18] MEDS ORDERED: ALUM-MAG HYDROX-SIMETH 200-200-20MG/5ML PO PRN (05:50)
[2019-02-18] MEDS: TYLENOL PO PRN (07:01)
--- NOTE | 2019-02-18 10:24 | Progress Note ---
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 Current Visit: Yes Status: Chronic (4) 30 weeks gestation of Onset Date: 02/15/19 Current Visit: Yes Status: Acute Plan to address problem: A: IUP @ 30 4/7 weeks - s/p Steroids and Magnesium sulfate IUGR with some end-diastolic flow Cat 2 tracing Chronic hypertension - better controlled on Labetolol 300mg BID and IV hydralazine 2 vessel cord with Marginal insertion AMA Morbid Obesity P: Continue present management as per [facility] Obtain BPP and Cord doppler now Allow pt to sleep throughout the night - cancel 4am NST and BP check Will deliver with reverse flow or compromise Subjective - Subjective Date of service: 02/18/19 Principal diagnosis: SIUP at 30 4/7weeks with CHTN, IUGR, absent EDF Interval history: Patient is a 33 year old EDC 04/25/19 at 30 weeks and 4 days gestation who was admitted 9 days ago for elevated BP, IUGR, absent EDF. She is a patient of [place] and has been co-managed with [facility]. She was seen at [facility] on 02/09/19 and sonogram showed the above findings. On admission, her BP was elevated and toxemia labs were normal. 24-hr urine was 770mg protein. She is on Labetolol 300mg BID. She was given Celestone for FLM (completed on 02/10/19) and magnesium sulfate for neuroprotection. Follow up cord doppler showed segments of end-diastolic flow and other segments showed no end-diastolic flow. Patient reports good movement. Today she denies headaches or abdominal pains. Patient reports: movement normal, no new complaints, no loss of fluid, no vaginal bleeding Objective - Vital Signs Vital Signs: Vital Signs - 12hr 02/17/19 02/17/19 02/17/19 22:25 22:30 22:35 Temperature Pulse Rate 63 75 81 Respiratory Rate Blood Pressure Blood Pressure [Left] O2 Sat by Pulse 98 98 98 Oximetry 04/20/19 04/20/19 04/20/19 22:40 22:45 22:50 Temperature Pulse Rate 64 87 65 Respiratory Rate Blood Pressure Blood Pressure [Left] O2 Sat by Pulse 98 97 98 Oximetry 02/18/19 02/18/19 02/18/19 00:35 02:15 02:16 Temperature 98.4 F Pulse Rate 66 80 Respiratory 18 Rate Blood Pressure 185/83 194/84 Blood Pressure [Left] O2 Sat by Pulse Oximetry 02/18/19 02/18/19 02/18/19 02:55 03:11 03:26 Temperature Pulse Rate 82 75 85 Respiratory Rate Blood Pressure 198/91 176/81 183/68 Blood Pressure [Left] O2 Sat by Pulse Oximetry 02/18/19 02/18/19 02/18/19 07:17 07:18 07:31 Temperature 98.4 F Pulse Rate 68 68 68 Respiratory 18 Rate Blood Pressure 227/124 227/124 Blood Pressure 156/80 [Left] O2 Sat by Pulse Oximetry 02/18/19 02/18/19 02/18/19 07:38 07:42 07:54 Temperature 97.3 F L Pulse Rate 73 68 Respiratory Rate Blood Pressure 184/96 Blood Pressure [Left] O2 Sat by Pulse 98 Oximetry 02/18/19 02/18/19 02/18/19 07:55 07:59 08:00 Temperature Pulse Rate 65 68 66 Respiratory Rate Blood Pressure 166/80 163/90 Blood Pressure [Left] O2 Sat by Pulse 99 Oximetry 02/18/19 02/18/19 02/18/19 08:04 08:05 08:09 Temperature Pulse Rate 65 64 67 Respiratory Rate Blood Pressure 172/89 Blood Pressure [Left] O2 Sat by Pulse 98 98 Oximetry 02/18/19 02/18/19 02/18/19 08:10 08:20 08:21 Temperature Pulse Rate 64 80 80 Respiratory Rate Blood Pressure 172/88 172/88 Blood Pressure [Left] O2 Sat by Pulse 98 Oximetry 02/18/19 02/18/19 02/18/19 08:25 08:26 08:30 Temperature Pulse Rate 70 74 85 Respiratory Rate Blood Pressure 185/88 169/80 Blood Pressure [Left] O2 Sat by Pulse 98 Oximetry 02/18/19 02/18/19 02/18/19 08:35 08:40 08:55 Temperature Pulse Rate 86 86 77 Respiratory Rate Blood Pressure 168/78 173/84 143/78 Blood Pressure [Left] O2 Sat by Pulse Oximetry 02/18/19 02/18/19 02/18/19 09:00 09:06 09:10 Temperature Pulse Rate 85 87 85 Respiratory Rate Blood Pressure 145/85 132/63 129/60 Blood Pressure [Left] O2 Sat by Pulse Oximetry 02/18/19 02/18/19 02/18/19 09:50 09:55 10:00 Temperature Pulse Rate 76 71 75 Respiratory Rate Blood Pressure 139/76 138/78 137/75 Blood Pressure [Left] O2 Sat by Pulse Oximetry 02/18/19 02/18/19 02/18/19 10:05 10:10 10:15 Temperature Pulse Rate 77 77 76 Respiratory Rate Blood Pressure 141/77 138/77 135/74 Blood Pressure [Left] O2 Sat by Pulse Oximetry 02/18/19 10:20 Temperature Pulse Rate 71 Respiratory Rate Blood Pressure 136/73 Blood Pressure [Left] O2 Sat by Pulse Oximetry - Exam Abdomen: Present: normal appearance, soft Uterus: Present: normal FHR: category 2 Uterine Contraction Monitor Mode: External Uterine Contraction Pattern: Absent - Labs Labs: Abnormal Labs 02/09/19 02/09/19 02/09/19 16:01 17:01 17:07 WBC Hgb MCV 73 L MCH 25 L RDW 19.2 H Creatinine Uric Acid Magnesium Lactate Dehydrogenase 245 H Albumin Urine pH Urine WBC (Auto) Ur Total Protein 24 Hr 770.00 H Urine Total Protein 22 H 02/09/19 02/10/19 02/10/19 17:08 05:36 08:03 WBC Hgb MCV MCH RDW Creatinine 0.6 L Uric Acid 3.2 L Magnesium Lactate Dehydrogenase Albumin 3.0 L Urine pH Urine WBC (Auto) 8.0 H Ur Total Protein 24 Hr Urine Total Protein 02/10/19 02/10/19 02/13/19 09:23 15:45 00:00 WBC Hgb MCV MCH RDW Creatinine Uric Acid Magnesium 5.90 H 5.10 H Lactate Dehydrogenase Albumin Urine pH 8.0 H Urine WBC (Auto) Ur Total Protein 24 Hr Urine Total Protein 02/13/19 02/13/19 00:28 00:28 WBC 18.6 H Hgb 10.0 L MCV 74 L MCH 23 L RDW 20.2 H Creatinine 0.6 L Uric Acid 3.4 L Magnesium Lactate Dehydrogenase 341 H Albumin Urine pH Urine WBC (Auto) Ur Total Protein 24 Hr Urine Total Protein
--- NOTE | 2019-02-18 13:40 | Ultrasound Report ---
PROCEDURE: US OB BPP WO NON-STRESS HISTORY: IUP @ 30 4/7 weeks; IUGR; 2V cord FINDINGS: Biophysical profile was performed. Biophysical profile was 8 out of 8. cardiac activi ty is present at 145 bpm. IMPRESSION: Biophysical profile 8 of 8 This document is electronically signed by Jaylan Mosqueda MD., February 18 2019 01:38:43 PM ET
--- NOTE | 2019-02-18 13:47 | Ultrasound Report ---
PROCEDURE: US OB VELOCIMETRY UMBILCAL ART HISTORY: IUP @ 30 4/7 weeks; IUGR; 2V cord FINDINGS: Real-time ultrasound of the umbilical cord was performed. S/D ratio was 4.06, which would be above the 95th percentile for gestational age. On the prior ultras ound of February 14 it was 5.46, and is therefore somewhat improved in the interval. Resistive index was 0.74, which is also elevated. (The 95th percentile would be 0.76 for gestational age). On the prior ultrasound of February 14, the resistive index was reported to be 0.18, which may hav e been a voice recognition error. Review of that prior examination examination reveals that on 2 [place] urements, end-diastolic flow was not identified (resistive index of 1.0), and on a third measurement the resistive index was 0.82. IMPRESSION: Umbilical artery S/D ratio and resistive index are both elevated This document is electronically signed by Jaylan Mosqueda MD., February 18 2019 01:45:45 PM ET
[2019-02-18] MEDS: FEOSOL PO SCH ×2 (15:50→21:36)
[2019-02-18] MEDS: NORMODYNE PO SCH (21:37)
[2019-02-19] MEDS: APRESOLINE IV PRN (06:27)
--- NOTE | 2019-02-19 08:43 | Progress Note ---
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 Current Visit: Yes Status: Chronic (4) 30 weeks gestation of Onset Date: 02/15/19 Current Visit: Yes Status: Acute Plan to address problem: A: IUP @ 30 5/7 weeks - s/p Steroids and Magnesium sulfate IUGR with some end-diastolic flow Cat 1 tracing Chronic hypertension - better controlled on Labetolol 300mg BID and IV hydralazine 2 vessel cord with Marginal insertion AMA Morbid Obesity P: Continue present management as per [facility] Allow pt to sleep throughout the night - cancel 4am NST and BP check Will deliver with reverse flow or compromise Subjective - Subjective Date of service: 02/19/19 Principal diagnosis: SIUP at 30 5/7weeks with CHTN, IUGR, absent EDF Interval history: Patient is a 33 year old EDC 04/25/19 at 30 weeks and 5 days gestation who was admitted 10 days ago for elevated BP, IUGR, absent EDF. She is a patient of [place] and has been co-managed with [facility]. She was seen at [facility] on 02/09/19 and sonogram showed the above findings. On admission, her BP was elevated and toxemia labs were normal. 24-hr urine was 770mg protein. She is on Labetolol 300mg BID. She was given Celestone for FLM (completed on 02/10/19) and magnesium sulfate for neuroprotection. Follow up cord doppler showed segments of end-diastolic flow and other segments showed no end-diastolic flow. Patient reports good movement. Today she denies headaches or abdominal pains. Patient reports: movement normal, no new complaints, no loss of fluid, no vaginal bleeding Objective - Vital Signs Vital Signs: Vital Signs - 12hr 02/18/19 02/18/19 02/18/19 21:30 21:32 21:37 Temperature 97.9 F Pulse Rate 75 75 75 Respiratory 18 Rate Blood Pressure 190/82 190/82 Blood Pressure 190/82 [Left] O2 Sat by Pulse Oximetry 02/18/19 02/18/19 02/18/19 21:45 21:50 21:55 Temperature Pulse Rate 61 63 65 Respiratory Rate Blood Pressure Blood Pressure [Left] O2 Sat by Pulse 98 98 98 Oximetry 02/18/19 02/18/19 02/18/19 22:00 22:05 22:10 Temperature Pulse Rate 63 62 66 Respiratory Rate Blood Pressure Blood Pressure [Left] O2 Sat by Pulse 98 98 98 Oximetry 02/18/19 02/18/19 02/18/19 22:15 22:20 22:25 Temperature Pulse Rate 67 68 67 Respiratory Rate Blood Pressure Blood Pressure [Left] O2 Sat by Pulse 98 98 98 Oximetry 02/18/19 02/18/19 02/18/19 22:30 22:35 22:40 Temperature Pulse Rate 69 68 81 Respiratory Rate Blood Pressure Blood Pressure [Left] O2 Sat by Pulse 98 99 99 Oximetry 02/18/19 02/18/19 02/18/19 22:45 22:47 22:56 Temperature Pulse Rate 69 74 74 Respiratory Rate Blood Pressure 204/100 196/86 196/86 Blood Pressure [Left] O2 Sat by Pulse 97 Oximetry 02/18/19 02/18/19 02/19/19 23:13 23:28 00:29 Temperature Pulse Rate 82 87 84 Respiratory Rate Blood Pressure 185/90 185/88 173/81 Blood Pressure [Left] O2 Sat by Pulse Oximetry 02/19/19 02/19/19 02/19/19 05:35 05:36 06:19 Temperature 98.0 F Pulse Rate 80 80 79 Respiratory 18 Rate Blood Pressure 186/82 212/91 Blood Pressure 186/82 [Left] O2 Sat by Pulse Oximetry 02/19/19 02/19/19 02/19/19 06:27 06:43 06:58 Temperature Pulse Rate 79 68 79 Respiratory Rate Blood Pressure 212/91 160/83 146/74 Blood Pressure [Left] O2 Sat by Pulse Oximetry 02/19/19 02/19/19 02/19/19 07:13 07:28 07:43 Temperature Pulse Rate 82 72 92 H Respiratory Rate Blood Pressure 147/74 155/76 160/77 Blood Pressure [Left] O2 Sat by Pulse Oximetry 02/19/19 02/19/19 02/19/19 07:58 08:13 08:28 Temperature Pulse Rate 80 77 85 Respiratory Rate Blood Pressure 140/73 158/77 164/75 Blood Pressure [Left] O2 Sat by Pulse Oximetry - Exam Abdomen: Present: normal appearance, soft FHR: category 1 Uterine Contraction Monitor Mode: External Uterine Contraction Pattern: Absent - Labs Labs: Abnormal Labs 02/09/19 02/09/19 02/09/19 16:01 17:01 17:07 WBC Hgb MCV 73 L MCH 25 L RDW 19.2 H Creatinine Uric Acid Magnesium Lactate Dehydrogenase 245 H Albumin Urine pH Urine WBC (Auto) Ur Total Protein 24 Hr 770.00 H Urine Total Protein 22 H 02/09/19 02/10/19 02/10/19 17:08 05:36 08:03 WBC Hgb MCV MCH RDW Creatinine 0.6 L Uric Acid 3.2 L Magnesium Lactate Dehydrogenase Albumin 3.0 L Urine pH Urine WBC (Auto) 8.0 H Ur Total Protein 24 Hr Urine Total Protein 02/10/19 02/10/19 02/13/19 09:23 15:45 00:00 WBC Hgb MCV MCH RDW Creatinine Uric Acid Magnesium 5.90 H 5.10 H Lactate Dehydrogenase Albumin Urine pH 8.0 H Urine WBC (Auto) Ur Total Protein 24 Hr Urine Total Protein 02/13/19 02/13/19 00:28 00:28 WBC 18.6 H Hgb 10.0 L MCV 74 L MCH 23 L RDW 20.2 H Creatinine 0.6 L Uric Acid 3.4 L Magnesium Lactate Dehydrogenase 341 H Albumin Urine pH Urine WBC (Auto) Ur Total Protein 24 Hr Urine Total Protein
[2019-02-19] MEDS: PROCARDIA XL PO SCH (10:15)
[2019-02-19] MEDS: NORMODYNE PO SCH ×2 (10:16→21:37)
[2019-02-19] MEDS: FEOSOL PO SCH ×3 (10:19→21:36)
[2019-02-19] MEDS ORDERED: NORMODYNE PO SCH ×2 (12:33→13:00)
[2019-02-19] MEDS ORDERED: NORMODYNE PO ONE (13:00)
--- NOTE | 2019-02-19 14:47 | Progress Note ---
Assessment and Plan patient is 33 yo @ 30w5d with IUGR sent with AEDF and CHTN not well controlled, MO and AMA MELANIE, not well controlled CHTN - dopplers today are reviewed and normal not absent - I reviewed the images from the US today and the BPP was 8/8 and the UA was normal to elevated - the patient BP has not been controlled and she has no sxs - the labetalol will be increased to 400 BID - she cannot swallow the Procardia so I will order Clonidine 0.1 q 12 this should not be stopped abruptly as rebound HTN can be caused - NST should be q 8 - growth scan q 3 weeks - ensure beta and mag course complete - PIH labs were normal ; please order again today - please call will watch BP on new dose medication - BP should be stabilized to 160/110 - with labs abniormalities, RUQ pain, pulm edema, kidney compromise NRFHT would have to consider delivery at earlier GA - at this time we will aim to reach 34 weeks GA for delivery and keep patient in house - doppler should be MWF and with deterioration would make further assessment - please call [facility] with any further concerns Subjective - Subjective Date of service: 02/19/19 Principal diagnosis: SIUP at 30 5/7weeks with CHTN, IUGR, absent EDF Interval history: the patient says that she is feeling well at the moment and has no ESTEBAN vision changes no RUQ pain, good FM no VB she feels well Patient reports: movement normal, no new complaints, no loss of fluid, no vaginal bleeding Objective - Vital Signs Vital Signs: Vital Signs - 12hr 02/19/19 02/19/19 02/19/19 05:35 05:36 06:19 Temperature 98.0 F Pulse Rate 80 80 79 Respiratory 18 Rate Blood Pressure 186/82 212/91 Blood Pressure 186/82 [Left] O2 Sat by Pulse Oximetry 02/19/19 02/19/19 02/19/19 06:27 06:43 06:58 Temperature Pulse Rate 79 68 79 Respiratory Rate Blood Pressure 212/91 160/83 146/74 Blood Pressure [Left] O2 Sat by Pulse Oximetry 02/19/19 02/19/19 02/19/19 07:13 07:28 07:43 Temperature Pulse Rate 82 72 92 H Respiratory Rate Blood Pressure 147/74 155/76 160/77 Blood Pressure [Left] O2 Sat by Pulse Oximetry 02/19/19 02/19/19 02/19/19 07:58 08:13 08:28 Temperature Pulse Rate 80 77 85 Respiratory Rate Blood Pressure 140/73 158/77 164/75 Blood Pressure [Left] O2 Sat by Pulse Oximetry 02/19/19 02/19/19 02/19/19 10:11 10:14 10:16 Temperature 97.8 F Pulse Rate 83 83 Respiratory 18 Rate Blood Pressure 144/77 144/77 Blood Pressure [Left] O2 Sat by Pulse Oximetry 02/19/19 02/19/19 02/19/19 10:29 10:35 10:39 Temperature Pulse Rate 86 77 76 Respiratory Rate Blood Pressure Blood Pressure [Left] O2 Sat by Pulse 98 97 98 Oximetry 02/19/19 02/19/19 10:44 10:49 Temperature Pulse Rate 74 77 Respiratory Rate Blood Pressure Blood Pressure [Left] O2 Sat by Pulse 97 97 Oximetry - Exam Breasts: normal Abdomen: Present: normal appearance, soft. Absent: distention, tenderness Uterus: Present: normal FHR: category 1 - Labs Labs: Abnormal Labs 02/09/19 02/09/19 02/09/19 16:01 17:01 17:07 WBC Hgb MCV 73 L MCH 25 L RDW 19.2 H Creatinine Uric Acid Magnesium Lactate Dehydrogenase 245 H Albumin Urine pH Urine WBC (Auto) Ur Total Protein 24 Hr 770.00 H Urine Total Protein 22 H 02/09/19 02/10/19 02/10/19 17:08 05:36 08:03 WBC Hgb MCV MCH RDW Creatinine 0.6 L Uric Acid 3.2 L Magnesium Lactate Dehydrogenase Albumin 3.0 L Urine pH Urine WBC (Auto) 8.0 H Ur Total Protein 24 Hr Urine Total Protein 02/10/19 02/10/19 02/13/19 09:23 15:45 00:00 WBC Hgb MCV MCH RDW Creatinine Uric Acid Magnesium 5.90 H 5.10 H Lactate Dehydrogenase Albumin Urine pH 8.0 H Urine WBC (Auto) Ur Total Protein 24 Hr Urine Total Protein 02/13/19 02/13/19 00:28 00:28 WBC 18.6 H Hgb 10.0 L MCV 74 L MCH 23 L RDW 20.2 H Creatinine 0.6 L Uric Acid 3.4 L Magnesium Lactate Dehydrogenase 341 H Albumin Urine pH Urine WBC (Auto) Ur Total Protein 24 Hr Urine Total Protein
[2019-02-19] MEDS ORDERED: CATAPRES PO SCH (22:00)
--- NOTE | 2019-02-20 09:36 | Progress Note ---
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 Current Visit: Yes Status: Chronic (4) 30 weeks gestation of Onset Date: 02/15/19 Current Visit: Yes Status: Acute Plan to address problem: A: IUP @ 30 6/7 weeks - s/p Steroids and Magnesium sulfate IUGR with some end-diastolic flow Cat 2 tracing Chronic hypertension - uncontrolled despite PO Labetolol 300mg BID and IV hydralazine 2 vessel cord with Marginal insertion AMA Morbid Obesity P: Will proceed with a Repeat C Section FELIPE. Subjective - Subjective Date of service: 02/20/19 Principal diagnosis: SIUP at 30 6/7weeks with CHTN, IUGR, absent EDF Interval history: Patient is a 33 year old EDC 04/25/19 at 30 weeks and 6 days gestation who was admitted 11 days ago for elevated BP, IUGR, absent EDF. She is a patient of [facility] and has been co-managed with [facility]. She was seen at [facility] on 02/09/19 and sonogram showed the above findings. On admission, her BP was elevated and toxemia labs were normal. 24-hr urine was 770mg protein. She is on Labetolol 300mg BID. She was given Celestone for FLM (completed on 02/10/19) and magnesium sulfate for neuroprotection. Follow up cord doppler showed segments of end-diastolic flow and other segments showed no end-diastolic flow. Patient reports good movement. Today she complains of headaches and RUQ pains. BP is 228/100 and tracing is Category 2. Patient reports: movement normal, no new complaints, no loss of fluid, no vaginal bleeding Objective - Vital Signs Vital Signs: Vital Signs - 12hr 02/19/19 02/19/19 02/19/19 21:33 21:36 21:37 Temperature Pulse Rate 68 68 68 Respiratory Rate Blood Pressure 191/93 191/93 191/93 Blood Pressure [Left] O2 Sat by Pulse Oximetry 02/19/19 02/19/19 02/20/19 23:15 23:17 08:17 Temperature 98.3 F Pulse Rate 73 64 67 Respiratory 18 Rate Blood Pressure 189/102 228/100 Blood Pressure 189/102 [Left] O2 Sat by Pulse 97 97 Oximetry 02/20/19 02/20/19 02/20/19 08:22 09:03 09:18 Temperature Pulse Rate 63 60 56 L Respiratory Rate Blood Pressure 220/95 221/125 202/94 Blood Pressure [Left] O2 Sat by Pulse Oximetry - Exam Abdomen: Present: normal appearance, soft Uterus: Present: normal FHR: category 2 Uterine Contraction Monitor Mode: External Uterine Contraction Pattern: Absent - Labs Labs: Abnormal Labs 02/09/19 02/09/19 02/09/19 16:01 17:01 17:07 WBC Hgb MCV 73 L MCH 25 L RDW 19.2 H Creatinine Uric Acid Magnesium Lactate Dehydrogenase 245 H Albumin Urine pH Urine WBC (Auto) Ur Total Protein 24 Hr 770.00 H Urine Total Protein 22 H 02/09/19 02/10/19 02/10/19 17:08 05:36 08:03 WBC Hgb MCV MCH RDW Creatinine 0.6 L Uric Acid 3.2 L Magnesium Lactate Dehydrogenase Albumin 3.0 L Urine pH Urine WBC (Auto) 8.0 H Ur Total Protein 24 Hr Urine Total Protein 02/10/19 02/10/19 02/13/19 09:23 15:45 00:00 WBC Hgb MCV MCH RDW Creatinine Uric Acid Magnesium 5.90 H 5.10 H Lactate Dehydrogenase Albumin Urine pH 8.0 H Urine WBC (Auto) Ur Total Protein 24 Hr Urine Total Protein 02/13/19 02/13/19 00:28 00:28 WBC 18.6 H Hgb 10.0 L MCV 74 L MCH 23 L RDW 20.2 H Creatinine 0.6 L Uric Acid 3.4 L Magnesium Lactate Dehydrogenase 341 H Albumin Urine pH Urine WBC (Auto) Ur Total Protein 24 Hr Urine Total Protein
[2019-02-20] MEDS ORDERED: ROCEPHIN ONE (09:56)
[2019-02-20] MEDS ORDERED: ANCEF/STERILE WATER 2 GM/20 ML 2 GM/20 ML SYRINGE IV ONE (09:58)
[2019-02-20] MEDS ORDERED: PEPCID IV NR (10:00)
[2019-02-20] MEDS ORDERED: BICITRA PO NR (10:00)
[2019-02-20] MEDS ORDERED: REGLAN IV NR (10:00)
[2019-02-20] MEDS ORDERED: LACTATED RINGERS 1,000 ML IV SCH (10:00)
[2019-02-20] MEDS ORDERED: PITOCin/NS 20 UNIT/1000ML DRIP 20 UNITS/1,000 ML BAG IV SCH ×2 (10:00→12:00)
--- NOTE | 2019-02-20 10:10 | Anesthesia Consultation ---
Anesthesia Consult and Med Hx - Airway Anesthetic Teeth Evaluation: Good ROM Head & Neck: Adequate Mental/Hyoid Distance: Adequate Mallampati Class: Class II Intubation Access Assessment: Probably Good - Pulmonary Exam CTA: Yes - Cardiac Exam Cardiac Exam: RRR - Pre-Operative Health Status ASA Pre-Surgery Classification: ASA2 Proposed Anesthetic Plan: Epidural - Pulmonary Hx Asthma: No COPD: No Hx Pneumonia: No - Cardiovascular System Hx Hypertension: Yes (pt on BP meds) - Central Nervous System Hx Seizures: No Hx Psychiatric Problems: No - Endocrine Hx Renal Disease: No Hx End Stage Renal Disease: No Hx Hypothyroidism: No Hx Hyperthyroidism: No - Hematic Hx Anemia: No Hx Sickle Cell Disease: No - Other Systems Hx Alcohol Use: No
--- NOTE | 2019-02-20 10:10 | Anesthesia Day of Surgery ---
Anesthesia Day of Surgery - Day of Surgery Patient Examined: Yes Patient H&P Reviewed: Yes Patient is NPO: Yes Beta Blockers: Yes Cardiac Clearance: No Pulmonary Clearance: No Genaro's Test: N/A
[2019-02-20 10:23] LABS: Hematocrit 35.5 % (30.3-42.9); Hemoglobin 11.4 gm/dl (10.1-14.3); Mean Corpuscular HGB Conc 32 % (30-34); Mean Corpuscular Volume 75 fl (79-97); Red Blood Count 4.71 M/mm3 (3.65-5.03)
[2019-02-20 10:25] LABS: Platelet Count 77 K/mm3 (140-440); Red Cell Distribution Width 20.7 % (13.2-15.2)
[2019-02-20] MEDS ORDERED: PHENERGAN PR PRN (10:30)
[2019-02-20] MEDS ORDERED: ZOFRAN IV PRN (10:30)
[2019-02-20] MEDS ORDERED: NARCAN 0.4 MG/1 ML IV PRN ×3 (10:30→11:36)
[2019-02-20] MEDS ORDERED: PHENERGAN PO PRN (10:30)
[2019-02-20] MEDS ORDERED: NACL 0.9% 500 ML 500 ML IV NR (10:38)
[2019-02-20] MEDS ORDERED: NACL 0.9% IR ONE (10:40)
[2019-02-20] MEDS ORDERED: WATER FOR IRRIG STERILE IR ONE (10:40)
[2019-02-20] MEDS ORDERED: QUELICIN ONE (10:44)
[2019-02-20] MEDS ORDERED: XYLOCAINE CARDIAC IV ONE (10:44)
[2019-02-20] MEDS ORDERED: DIPRIVAN 10 MG/ML IV ONE (10:44)
[2019-02-20] MEDS ORDERED: SODIUM CHLORIDE FLUSH SYRINGE 10 ML IV PRN (11:00)
[2019-02-20] MEDS ORDERED: DECADRON ONE (11:00)
[2019-02-20] MEDS ORDERED: ZOFRAN ONE (11:00)
[2019-02-20] MEDS ORDERED: DILAUDID ONE (11:02)
[2019-02-20] MEDS ORDERED: SUBLIMAZE ONE (11:10)
[2019-02-20] MEDS ORDERED: NEO SYNEPHRINE/NS Syringe(OR USE) IV ONE (11:15)
--- NOTE | 2019-02-20 11:33 | Operative Report ---
Operative Report Operative Report: Date of procedure: 02/20/2019 Pre-operative diagnosis: 1. Intrauterine at 30-6/7 weeks 2. Chroni c hypertension with superimposed preeclampsia 3. Intrauterine growth restriction 4. Previous 5. Two-vessel cord 6. Non-reassuring surveillance Post-operative diagnosis: Same Procedure name(s): Repeat low transverse section Surgeon: Geraldo Villarreal MD Medical Policy Specialist: None Anesthesia: Gen. endotracheal intubation by Antonio Villarreal CRNA EBL: 250 mL's Findings: An 890 g male Apgars 7 at 1 minute 8 at 5 minutes. Normal uterus. Normal tubes and ovaries bilaterally. Procedure: After the patient was prepped and draped in usual sterile fashion, and after general anesthesia was obtained, the skin knife was used to make a transverse skin incision through the previous skin scar. The incision was excised down to layer of the fascia, which was nicked in the midline and extended laterally using the Bovie cautery. The rectus muscles were dissected off the rectus fascia both superiorly and inferiorly. The rectus bellies in the midline, and the peritoneum was entered under direct visualization. The peritoneal incision was extended superiorly and inferiorly. A bladder flap was created and the bladder blade was then placed. The uterus was scored in a curvilinear linear fashion, entered in the midline revealing clear amniotic fluid. The 's head was delivered onto the surgical field, and the oropharynx and nasopharynx were bulb suctioned. The rest of the infant's body was delivered, cord was doubly clamped and cut and the was handed to the waiting respiratory team. The placenta was manually removed from the uterus, and the uterus removed from its normal anatomical position. After gentle uterine lavage, the incision was inspected and found to be without extensions. It was then closed in 2 layers using 0 Vicryl suture in a running interlocking fashion, the second layer imbricating the first. After good hemostasis was achieved, copious amounts or irrigation was performed, and the gutters were suctioned free of blood and blood clots. The Tisseel sealant was sprayed across the uterine incision. The uterus was then returned to its normal anatomical position, and after excellent hemostasis assured, the peritoneum was re-approximated using 3-0 Vicryl suture in a running interlocking fashion, and then the rectus muscles were re-approximated using 3-0 Vicryl suture in a [id number] configuration. The fascia was then re-approximated using 0 Vicryl suture in running interlocking fashion. The subcutaneous layer was made hemostatic using Bovie cautery, the Tisseel sealant was sprayed across the fascial incision and the skin edges re-approximated using 4-0 Vicryl suture in a sub-cuticular fashion. Patient tolerated the procedure well was transported to recovery in stable condition.
[2019-02-20] MEDS ORDERED: NORCO 5/325 PO PRN (11:36)
[2019-02-20] MEDS ORDERED: LANSINOH TP PRN (11:36)
[2019-02-20] MEDS ORDERED: TUCKS PAD TP PRN (11:36)
[2019-02-20] MEDS ORDERED: MYLICON PO PRN (11:36)
[2019-02-20] MEDS ORDERED: SENOKOT PO PRN (11:36)
[2019-02-20] MEDS ORDERED: PERCOCET 5/325 PO PRN (11:36)
[2019-02-20] MEDS ORDERED: TORADOL IV PRN (11:36)
[2019-02-20] MEDS ORDERED: BENADRYL IV PRN (11:36)
--- NOTE | 2019-02-20 11:44 | Post Anesthesia Evaluation ---
- Post Anesthesia Evaluation Patient Participated: Yes Airway Patent: Yes Stable Respiratory Function: Yes Nausea/Vomiting: No Temp > 96.8F: Yes Pain Manageable: Yes Adequeate Hydration: Yes Anesthesia Complications: No Block Receding Appropriately: Not Applicable Patient on Ventilator: No
[2019-02-20] MEDS ORDERED: SODIUM CHLORIDE FLUSH SYRINGE 10 ML IV NR (12:00)
[2019-02-20] MEDS ORDERED: NACL 0.9% 1000 ML 1,000 ML IV SCH (12:00)
[2019-02-20] MEDS: DILAUDID IV PRN ×3 (12:12→12:34)
[2019-02-20] MEDS: D5LR 1,000 ML IV SCH ×2 (12:22→23:00)
[2019-02-20] MEDS ORDERED: MORPHINE PCA 30MG/30ML IV SCH (12:30)
[2019-02-20 12:50] LABS: Basophils % (Manual) 0 % (0.0-1.8); Total Cells Counted 100
[2019-02-20 12:51] LABS: Anisocytosis 1+; Hypochromasia 1+; Platelet Estimate Consistent w Auto
[2019-02-20] MEDS: MAGNESIUM SULFATE 40GM/1000ML 40 GM/1,000 ML BAG IV SCH (13:06)
[2019-02-20] MEDS: APRESOLINE IV PRN (15:45)
[2019-02-20] MEDS ORDERED: ANCEF/NS 1 GM/50 ML 1 GM/50 ML BAG IV SCH (18:00)
[2019-02-20] MEDS: NORMODYNE PO SCH (22:30)
[2019-02-20 23:05] LABS: Hematocrit 33.6 % (30.3-42.9); Hemoglobin 10.7 gm/dl (10.1-14.3); Mean Corpuscular HGB Conc 32 % (30-34); Mean Corpuscular Volume 77 fl (79-97); Red Blood Count 4.37 M/mm3 (3.65-5.03)
[2019-02-20 23:10] LABS: Red Cell Distribution Width 22.2 % (13.2-15.2)
[2019-02-20 23:34] LABS: Alanine Aminotransferase 67 units/L (7-56)
[2019-02-21 00:35] LABS: Platelet Count 79 K/mm3 (140-440)
[2019-02-21] MEDS ORDERED: BOOSTRIX IM ONE (06:00)
[2019-02-21] MEDS ORDERED: M-M-R II VACCINE SUB-Q ONE (06:00)
[2019-02-21] MEDS: D5LR 1,000 ML IV SCH (10:57)
[2019-02-21] MEDS: MAGNESIUM SULFATE 40GM/1000ML 40 GM/1,000 ML BAG IV SCH (10:58)
[2019-02-21] MEDS: NORMODYNE PO SCH ×2 (10:59→21:36)
[2019-02-21] MEDS: FEOSOL PO SCH ×2 (11:00→21:28)
[2019-02-21] MEDS: PRENATAL VITAMIN PO SCH (11:01)
--- NOTE | 2019-02-21 11:32 | Progress Note ---
Assessment and Plan - Patient Problems (1) 29 weeks gestation of Onset Date: 02/13/19 Current Visit: Yes Status: Resolved (2) IUGR (intrauterine growth restriction) Onset Date: 02/13/19 Current Visit: Yes Status: Resolved (3) Single umbilical artery Onset Date: 02/13/19 Current Visit: Yes Status: Resolved (4) 30 weeks gestation of Onset Date: 02/15/19 Current Visit: Yes Status: Resolved (5) Status post Onset Date: 02/21/19 Current Visit: Yes Status: Resolved Plan to address problem: A: S/P Repeat C Section - POD #1 Preeclampsia - improved on IV Magnesium sulfate and PO Labetolol HELLP syndrome - improving P: Continue present management Will D/C IV magnesium sulfate and transfer to M/B floor (6) Pre-eclampsia added to pre-existing hypertension Onset Date: 02/21/19 Current Visit: Yes Status: Chronic (7) HELLP syndrome Onset Date: 02/21/19 Current Visit: Yes Status: Resolved Qualifiers: Trimester: unspecified trimester Qualified Code(s): O14.20 - HELLP syndrome (HELLP), unspecified trimester Subjective - Subjective Date of service: 02/21/19 Principal diagnosis: s/p Repeat C Section; Preeclampsia Interval history: Patient is feeling well without complaints. Bleeding improved. She is currently on IV Magnesium sulfate. Patient reports: appetite normal, voiding normally, pain well controlled, no flatus, no ambulating normally, no nauseated [place]: doing well, in NICU Objective - Vital Signs Latest vital signs: Vital Signs Temp Pulse Resp BP BP Pulse Ox 02/21/19 11:16 68 145/86 02/21/19 10:59 70 139/87 02/21/19 10:46 70 139/87 02/21/19 10:16 66 133/75 02/21/19 09:46 71 168/103 02/21/19 09:16 67 170/91 02/21/19 08:46 74 133/86 02/21/19 08:16 72 151/91 02/21/19 07:46 64 146/86 02/21/19 07:16 68 161/99 02/21/19 06:46 69 156/99 02/21/19 06:16 66 152/97 02/21/19 05:46 71 162/98 02/21/19 05:16 67 146/93 02/21/19 04:45 72 142/90 02/21/19 04:16 60 139/88 02/21/19 03:45 66 144/92 02/21/19 03:16 64 142/89 02/21/19 02:45 63 143/88 02/21/19 02:16 63 143/88 02/21/19 01:46 63 138/85 02/21/19 01:16 63 137/87 02/21/19 00:46 63 140/86 02/21/19 00:16 67 141/88 02/20/19 23:46 69 147/92 02/20/19 23:16 64 153/91 02/20/19 22:46 69 164/94 02/20/19 22:30 153/97 02/20/19 22:16 75 160/96 02/20/19 21:46 74 151/88 02/20/19 21:16 65 140/83 02/20/19 20:46 70 150/96 02/20/19 20:15 70 142/89 02/20/19 19:46 74 136/85 02/20/19 19:16 74 133/85 02/20/19 18:46 69 140/87 02/20/19 18:16 82 121/72 02/20/19 18:08 98.2 F 18 02/20/19 17:45 72 143/92 02/20/19 17:16 77 159/97 02/20/19 17:00 78 96 02/20/19 16:55 75 96 02/20/19 16:50 79 98 02/20/19 16:46 74 155/93 02/20/19 16:45 75 96 02/20/19 16:40 75 98 02/20/19 16:35 88 96 02/20/19 16:30 75 96 02/20/19 16:25 72 97 02/20/19 16:20 77 97 02/20/19 16:16 71 157/91 02/20/19 16:15 72 97 02/20/19 16:11 98.1 F 77 16 85 02/20/19 16:10 73 96 02/20/19 16:05 76 96 02/20/19 16:00 74 97 02/20/19 15:55 68 97 02/20/19 15:50 71 97 02/20/19 15:46 70 188/104 02/20/19 15:45 71 95 02/20/19 15:40 64 96 02/20/19 15:35 66 94 02/20/19 15:34 65 94 02/20/19 15:31 62 199/109 02/20/19 15:30 60 97 02/20/19 15:25 65 96 02/20/19 15:20 68 98 02/20/19 15:16 57 L 193/108 02/20/19 15:15 59 L 96 02/20/19 15:10 63 98 02/20/19 15:05 59 L 97 02/20/19 15:02 67 94 02/20/19 15:01 62 184/103 02/20/19 15:00 58 L 98 02/20/19 14:55 57 L 98 02/20/19 14:51 61 94 02/20/19 14:50 63 95 02/20/19 14:46 68 189/100 02/20/19 14:45 66 97 02/20/19 14:40 72 95 02/20/19 14:39 66 94 02/20/19 14:35 69 96 02/20/19 14:30 59 L 185/96 94 02/20/19 14:28 62 94 02/20/19 14:25 57 L 91 02/20/19 14:22 57 L 94 02/20/19 14:20 61 93 02/20/19 14:16 57 L 94 02/20/19 14:15 60 96 02/20/19 14:11 61 93 02/20/19 14:10 60 96 02/20/19 14:06 63 94 02/20/19 14:05 62 95 02/20/19 14:01 62 171/107 02/20/19 14:00 62 92 02/20/19 13:57 61 168/102 94 02/20/19 13:56 57 L 18 168/102 94 02/20/19 13:55 70 94 02/20/19 13:51 55 L 161/100 02/20/19 13:50 60 90 02/20/19 13:46 55 L 156/99 94 02/20/19 13:45 73 91 02/20/19 13:41 60 18 156/96 156/96 91 02/20/19 13:40 62 93 02/20/19 13:38 62 93 02/20/19 13:37 64 151/93 02/20/19 13:35 59 L 93 02/20/19 13:32 70 94 02/20/19 13:31 71 171/102 02/20/19 13:30 71 95 02/20/19 13:26 62 18 161/97 161/97 95 02/20/19 13:25 66 95 02/20/19 13:21 63 158/95 02/20/19 13:20 61 89 02/20/19 13:16 59 L 157/92 92 02/20/19 13:15 60 92 02/20/19 13:12 65 18 155/87 155/87 92 02/20/19 12:56 64 134/83 02/20/19 12:40 98.1 F 65 18 169/97 100 02/20/19 12:34 16 02/20/19 12:25 58 L 16 157/88 100 02/20/19 12:12 19 02/20/19 12:10 59 L 18 135/79 100 02/20/19 11:55 60 20 138/86 100 02/20/19 11:40 97.6 F 63 19 139/79 100 Intake and Output 02/20/19 02/21/19 02/21/19 22:59 06:59 14:59 Intake Total 1360 2000 Output Total 1250 2200 Balance 110 -2200 2000 Intake: IV 1000 2000 D5lr 1,000 ml @ 125 mls/ 1000 1000 hr IV DIRECT KATEY Rx#: [id number] MAGNESIUM SULFATE 40GM/ 1000 1000ML 40 gm In 1,000 ml @ 2 GM/HR 50 mls/hr IV DIRECT KATEY Rx#:[id number] Oral 360 Output: Urine 1250 2200 Indwelling Catheter 1000 2200 Void 250 Other: Total, Intake Amount 360 Total, Output Amount 600 1400 - Exam Abdomen: Present: normal appearance, soft Uterus: Present: normal, firm, fundal height below umbilicus Extremities: Present: normal Incision: Present: normal, dry, intact - Labs Labs: Abnormal lab results 02/20/19 02/20/19 02/20/19 Range/Units 10:11 22:51 22:51 WBC 14.0 H 21.0 H (4.5-11.0) K/mm3 MCV 77 L (79-97) fl MCH 24 L (28-32) pg RDW 22.2 H (13.2-15.2) % Plt Count 79 L (140-440) K/mm3 Seg Neuts % (Manual) 74.0 H (40.0-70.0) % Nucleated RBC % 5.0 H (0.0-0.9) % Seg Neutrophils # Man 0.0 L (1.8-7.7) K/mm3 Lymphocytes # (Manual) 0.0 L (1.2-5.4) K/mm3 AST 105 H (5-40) units/L ALT 67 H (7-56) units/L
[2019-02-21] MEDS ORDERED: ANCEF/NS 1 GM/50 ML 1 GM/50 ML BAG IV SCH (17:00)
[2019-02-22 08:37] LABS: Alanine Aminotransferase 53 units/L (7-56)
--- NOTE | 2019-02-22 10:22 | Progress Note ---
Assessment and Plan - Patient Problems (1) 29 weeks gestation of Onset Date: 02/13/19 Current Visit: Yes Status: Resolved (2) IUGR (intrauterine growth restriction) Onset Date: 02/13/19 Current Visit: Yes Status: Resolved (3) Single umbilical artery Onset Date: 02/13/19 Current Visit: Yes Status: Resolved (4) 30 weeks gestation of Onset Date: 02/15/19 Current Visit: Yes Status: Resolved (5) Status post Onset Date: 02/21/19 Current Visit: Yes Status: Resolved Plan to address problem: A: S/P Repeat C Section - POD #2 Doing well Preeclampsia - improved on PO Labetolol HELLP syndrome - improving P: Anticipate discharge tomorrow. (6) Pre-eclampsia added to pre-existing hypertension Onset Date: 02/21/19 Current Visit: Yes Status: Chronic (7) HELLP syndrome Onset Date: 02/21/19 Current Visit: Yes Status: Resolved Qualifiers: Trimester: unspecified trimester Qualified Code(s): O14.20 - HELLP syndrome (HELLP), unspecified trimester Subjective - Subjective Date of service: 02/22/19 Principal diagnosis: s/p Repeat C Section - POD #2; Preeclampsia Interval history: Patient is feeling well without complaints. She is tolerating a reg diet without nausea or vomiting, ambulating and voiding without difficulty. Patient reports: appetite normal, voiding normally, pain well controlled, flatus, ambulating normally, no dizzy ambulation, no nauseated [place]: doing well, in NICU Objective - Vital Signs Latest vital signs: Vital Signs Temp Pulse Resp BP BP Pulse Ox 02/22/19 08:25 98.5 F 75 20 149/79 02/22/19 00:10 101 H 20 111/62 97 02/22/19 00:06 98.0 F 80 20 145/76 93 02/21/19 21:36 75 137/74 02/21/19 21:35 75 16 137/74 96 02/21/19 16:35 98.6 F 69 18 146/85 02/21/19 14:23 18 02/21/19 14:00 97.4 F L 69 18 142/92 100 02/21/19 13:10 97.8 F 18 02/21/19 12:46 66 131/73 02/21/19 12:16 66 122/68 02/21/19 11:46 69 139/81 02/21/19 11:16 68 145/86 02/21/19 10:59 70 139/87 02/21/19 10:46 70 139/87 Intake and Output 02/21/19 02/22/19 02/22/19 22:59 06:59 14:59 Intake Total 240 240 Output Total 600 601 600 Balance -360 -601 -360 Intake: Oral 240 240 Output: Urine 600 601 600 Uretheral ([place]) 300 Void 300 601 600 Other: Total, Intake Amount 240 240 Total, Output Amount 300 1 600 # Voids Void 1 700 3 - Exam Cardiovascular: Present: Regular rate Abdomen: Present: normal appearance, soft Uterus: Present: normal, firm, fundal height below umbilicus Extremities: Present: normal Incision: Present: normal, dry, intact - Labs Labs: Abnormal lab results 02/22/19 02/22/19 Range/Units 08:03 08:03 Plt Count 113 L (140-440) K/mm3 AST 61 H (5-40) units/L
[2019-02-22] MEDS: IBUPROFEN PO PRN (12:31)
[2019-02-22] MEDS: NORMODYNE PO SCH (21:47)
[2019-02-22] MEDS: FEOSOL PO SCH (21:50)
[2019-02-23 08:25] LABS: Alanine Aminotransferase 47 units/L (7-56)
--- NOTE | 2019-02-23 10:06 | Progress Note ---
Assessment and Plan - Patient Problems (1) 29 weeks gestation of Onset Date: 02/13/19 Current Visit: Yes Status: Resolved (2) IUGR (intrauterine growth restriction) Onset Date: 02/13/19 Current Visit: Yes Status: Resolved (3) Single umbilical artery Onset Date: 02/13/19 Current Visit: Yes Status: Resolved (4) 30 weeks gestation of Onset Date: 02/15/19 Current Visit: Yes Status: Resolved (5) Status post Onset Date: 02/21/19 Current Visit: Yes Status: Resolved Plan to address problem: A: S/P Repeat C Section - POD #3 Doing well Preeclampsia - improved on PO Labetolol HELLP syndrome - resolved P: May go home today Follow up in the office in 1 week for BP check. (6) Pre-eclampsia added to pre-existing hypertension Onset Date: 02/21/19 Current Visit: Yes Status: Chronic (7) HELLP syndrome Onset Date: 02/21/19 Current Visit: Yes Status: Resolved Qualifiers: Trimester: unspecified trimester Qualified Code(s): O14.20 - HELLP syndrome (HELLP), unspecified trimester Subjective - Subjective Date of service: 02/23/19 Principal diagnosis: s/p Repeat C Section - POD #3; Preeclampsia; HELLP syndrome Interval history: Patient is feeling well without complaints. She is tolerating a reg diet without nausea or vomiting, ambulating and voiding without difficulty. Patient reports: appetite normal, voiding normally, pain well controlled, flatus, ambulating normally, no dizzy ambulation, no nauseated : doing well, in NICU Objective - Vital Signs Latest vital signs: Vital Signs Temp Pulse Resp BP BP Pulse Ox 02/23/19 05:51 76 158/86 02/23/19 04:00 70 166/88 02/23/19 00:06 98.9 F 78 18 171/84 95 02/22/19 23:28 98.5 F 76 20 193/81 97 02/22/19 21:47 76 156/85 02/22/19 20:24 98.7 F 81 20 154/84 97 02/22/19 16:15 97.8 F 79 20 145/76 02/22/19 13:27 18 02/22/19 12:31 18 02/22/19 12:27 18 Intake and Output 02/22/19 02/23/19 02/23/19 22:59 06:59 14:59 Intake Total 660 Output Total 400 Balance 260 Intake: Oral 660 Output: Urine 400 Void 400 Other: Total, Intake Amount 240 Total, Output Amount 400 # Voids Indwelling Catheter 1 Void 1 - Exam Breasts: Present: deferred Abdomen: Present: normal appearance, soft Uterus: Present: normal, firm, fundal height below umbilicus Extremities: Present: normal Incision: Present: normal, dry, intact - Labs Labs: Abnormal lab results 02/23/19 Range/Units 07:50 AST 53 H (5-40) units/L Laboratory Last Values WBC 21.0 K/mm3 (4.5-11.0) H 02/20/19 22:51 RBC 4.37 M/mm3 (3.65-5.03) 02/20/19 22:51 Hgb 10.7 gm/dl (10.1-14.3) 02/20/19 22:51 Hct 33.6 % (30.3-42.9) 02/20/19 22:51 MCV 77 fl (79-97) L 02/20/19 22:51 MCH 24 pg (28-32) L 02/20/19 22:51 MCHC 32 % (30-34) 02/20/19 22:51 RDW 22.2 % (13.2-15.2) H 02/20/19 22:51 Plt Count 148 K/mm3 (140-440) 02/23/19 07:50 Add Manual Diff Complete 02/20/19 10:11 Total Counted 100 02/20/19 10:11 Seg Neuts % (Manual) 74.0 % (40.0-70.0) H 02/20/19 10:11 Band Neutrophils % 0 % 02/20/19 10:11 Lymphocytes % (Manual) 20.0 % (13.4-35.0) 02/20/19 10:11 Reactive Lymphs % (Man) 0 % 02/20/19 10:11 Monocytes % (Manual) 5.0 % (0.0-7.3) 02/20/19 10:11 Eosinophils % (Manual) 1.0 % (0.0-4.3) 02/20/19 10:11 Basophils % (Manual) 0 % (0.0-1.8) 02/20/19 10:11 Metamyelocytes % 0 % 02/20/19 10:11 Myelocytes % 0 % 02/20/19 10:11 Promyelocytes % 0 % 02/20/19 10:11 Blast Cells % 0 % 02/20/19 10:11 Nucleated RBC % 5.0 % (0.0-0.9) H 02/20/19 10:11 Seg Neutrophils # Man 0.0 K/mm3 (1.8-7.7) L 02/20/19 10:11 Band Neutrophils # 0.0 K/mm3 02/20/19 10:11 Lymphocytes # (Manual) 0.0 K/mm3 (1.2-5.4) L 02/20/19 10:11 Abs React Lymphs (Man) 0.0 K/mm3 02/20/19 10:11 Monocytes # (Manual) 0.0 K/mm3 (0.0-0.8) 02/20/19 10:11 Eosinophils # (Manual) 0.0 K/mm3 (0.0-0.4) 02/20/19 10:11 Basophils # (Manual) 0.0 K/mm3 (0.0-0.1) 02/20/19 10:11 Metamyelocytes # 0.0 K/mm3 02/20/19 10:11 Myelocytes # 0.0 K/mm3 02/20/19 10:11 Promyelocytes # 0.0 K/mm3 02/20/19 10:11 Blast Cells # 0.0 K/mm3 02/20/19 10:11 WBC Morphology Not Reportable 02/20/19 10:11 Hypersegmented Neuts Not Reportable 02/20/19 10:11 Hyposegmented Neuts Not Reportable 02/20/19 10:11 Hypogranular Neuts Not Reportable 02/20/19 10:11 Smudge Cells Not Reportable 02/20/19 10:11 Toxic Granulation Not Reportable 02/20/19 10:11 Toxic Vacuolation Not Reportable 02/20/19 10:11 Dohle Bodies Not Reportable 02/20/19 10:11 Pelger-Huet Anomaly Not Reportable 02/20/19 10:11 Nils Rods Not Reportable 02/20/19 10:11 Platelet Estimate Consistent w auto 02/20/19 10:11 Clumped Platelets Not Reportable 02/20/19 10:11 Plt Clumps, EDTA Not Reportable 02/20/19 10:11 Large Platelets Not Reportable 02/20/19 10:11 Giant Platelets Not Reportable 02/20/19 10:11 Platelet Satelliting Not Reportable 02/20/19 10:11 Plt Morphology Comment Not Reportable 02/20/19 10:11 RBC Morphology Not Reportable 02/20/19 10:11 Dimorphic RBCs Not Reportable 02/20/19 10:11 Polychromasia Few 02/20/19 10:11 Hypochromasia 1+ 02/20/19 10:11 Poikilocytosis Not Reportable 02/20/19 10:11 Anisocytosis 1+ 02/20/19 10:11 Microcytosis Not Reportable 02/20/19 10:11 Macrocytosis Not Reportable 02/20/19 10:11 Spherocytes Not Reportable 02/20/19 10:11 Pappenheimer Bodies Not Reportable 02/20/19 10:11 Sickle Cells Not Reportable 02/20/19 10:11 Target Cells Not Reportable 02/20/19 10:11 Tear Drop Cells Not Reportable 02/20/19 10:11 Ovalocytes Not Reportable 02/20/19 10:11 Helmet Cells Not Reportable 02/20/19 10:11 [place] Bodies Not Reportable 02/20/19 10:11 [place] Rings Not Reportable 02/20/19 10:11 [place] Cells Not Reportable 02/20/19 10:11 Bite Cells Not Reportable 02/20/19 10:11 Crenated Cell Not Reportable 02/20/19 10:11 Elliptocytes Not Reportable 02/20/19 10:11 Acanthocytes (Spur) Not Reportable 02/20/19 10:11 Rouleaux Not Reportable 02/20/19 10:11 Hemoglobin C Crystals Not Reportable 02/20/19 10:11 Schistocytes Not Reportable 02/20/19 10:11 Malaria parasites Not Reportable 02/20/19 10:11 Juan Bodies Not Reportable 02/20/19 10:11 Hem Pathologist Commnt No 02/20/19 10:11 Lupus Anticoagulant see below 02/10/19 05:36 Creatinine 0.6 mg/dL (0.7-1.2) L 02/13/19 00:28 Estimated GFR > 60 ml/min 02/13/19 00:28 Hemoglobin A1c 5.7 % (4-6) 02/09/19 17:08 Uric Acid 3.4 mg/dL (3.5-7.6) L 02/13/19 00:28 Magnesium 5.10 mg/dL (1.7-2.3) H 02/10/19 15:45 Total Bilirubin < 0.20 mg/dL (0.1-1.2) 02/09/19 17:08 Direct Bilirubin < 0.2 mg/dL (0-0.2) 02/09/19 17:08 Indirect Bilirubin 0.0 mg/dL 02/09/19 17:08 AST 53 units/L (5-40) H 02/23/19 07:50 ALT 47 units/L (7-56) 02/23/19 07:50 Alkaline Phosphatase 96 units/L (35-129) 02/09/19 17:08 Lactate Dehydrogenase 341 units/L (91-180) H 02/13/19 00:28 Total Protein 6.5 g/dL (6.3-8.2) 02/09/19 17:08 Albumin 3.0 g/dL (3.9-5) L 02/09/19 17:08 Albumin/Globulin Ratio 0.9 % 02/09/19 17:08 Iiyp-2-Mcgspzthobukr 2.42 mg/L (<=2.51) 02/10/19 05:36 Urine Color Colorless (Yellow) 02/13/19 00:00 Urine Turbidity Clear (Clear) 02/13/19 00:00 Urine pH 8.0 (5.0-7.0) H 02/13/19 00:00 Ur Specific [place] 1.004 (1.003-1.030) 02/13/19 00:00 Urine Protein 30 mg/dl mg/dL (Negative) 02/13/19 00:00 Urine Glucose (UA) Neg mg/dL (Negative) 02/13/19 00:00 Urine Ketones Neg mg/dL (Negative) 02/13/19 00:00 Urine Blood Neg (Negative) 02/13/19 00:00 Urine Nitrite Neg (Negative) 02/13/19 00:00 Urine Bilirubin Neg (Negative) 02/13/19 00:00 Urine Urobilinogen < 2.0 mg/dL (<2.0) 02/13/19 00:00 Ur Leukocyte Esterase Neg (Negative) 02/13/19 00:00 Urine WBC (Auto) < 1.0 /HPF (0.0-6.0) 02/13/19 00:00 Urine RBC (Auto) 3.0 /HPF (0.0-6.0) 02/13/19 00:00 U Epithel Cells (Auto) 1.0 /HPF (0-13.0) 02/13/19 00:00 Urine Bacteria (Auto) 1+ /HPF (Negative) 02/13/19 00:00 Urine Total Volume 3500 ml 02/09/19 16:01 Ur Total Protein 24 Hr 770.00 mg/dL (2-200) H 02/09/19 16:01 Urine Total Protein 22 mg/dL (5-11.8) H 02/09/19 16:01 Cardiolipid IgG Ab <14 GPL (<=14) 02/10/19 05:36 Cardiolipid IgA Ab <11 APL (<=11) 02/10/19 05:36 Cardiolipid IgM Ab <12 MPL (<=12) 02/10/19 05:36 CMV DNA PCR log gyroscope repairer/mL See scanned result 02/10/19 05:36 HSV II DNA PCR See scanned result 02/10/19 07:37 HIV 1&2 Antibody Rapid Non react (Non React) 02/10/19 05:36 HIV P24 Antigen Non react (Non React) 02/10/19 05:36 Rubella IgG Antibody Immune (Immune) 02/10/19 05:36 Toxoplasma IgG Ab <7.20 IU/mL (<7.20) 02/10/19 05:36 Toxoplasma IgM Ab <8.00 AU/mL (<8.00) 02/10/19 05:36 Blood Type A POSITIVE 02/20/19 09:50 Antibody Screen Negative 02/20/19 09:50 Crossmatch See Detail 02/20/19 09:50
--- NOTE | 2019-02-23 10:43 | Discharge Summary ---
Providers - Providers Date of Admission: 02/12/19 12:33 Date of discharge: 02/23/19 Attending physician: OLINDA URBINA 02/09/19 23:44 Consult to Physician [CONS] Routine Comment: Consulting Provider: MITCHELL DAVIS Physician Instructions: Reason For Exam: 29 wk consult, absent end diastolic flow Primary care physician: OLINDA URBINA Hospitalization Reason for admission: IUP - , observation, other (Chronic hypertension with superimposed preeclampsia; IUGR; 2 vessel cord) Delivery: Procedure: section, repeat low transverse Episiotomy: none Laceration: none Incision: normal, dry, intact Other procedures: none complications: none Discharge diagnosis: delivery baby: male Hospital course: Patient is a 33 year old EDC 04/25/19 who was admitted for elevated BP, IUGR, absent EDF. She was a patient of [place] and had been co-managed with [facility]. She was seen at [facility] on 02/09/19 and sonogram showed the above findings. On admission, her BP was elevated and toxemia labs were normal. 24-hr urine was 770mg protein. She was on Labetolol 300mg BID, given Celestone for FLM (completed on 02/10/19) and magnesium sulfate for neuroprotection. Follow up cord doppler showed segments of end-diastolic flow and other segments showed no end-diastolic flow. Over the course of 11 days she developed complaints of headaches and RUQ pains. BP was 228/100 and tracing was Category 2. She developed HELLP syndrome and thus was delivered by an uncomplicated Repeat C Section. Post operative course was unremarkable, and BP's stabilized on Labetolol 400mg BID. By POD #3 she was tolerating a reg diet without nausea or vomiting, ambulating and voiding without difficulty. Baby remained in NICU. She will therefore be discharged to home today with plans to follow up in the office in 1 week for BP check. Condition at discharge: Good Disposition: DC-01 TO HOME OR SELFCARE - Discharge Diagnoses (1) 29 weeks gestation of Status: Resolved (2) IUGR (intrauterine growth restriction) Status: Resolved (3) Single umbilical artery Status: Resolved (4) 30 weeks gestation of Status: Resolved (5) Status post Status: Resolved (6) Pre-eclampsia added to pre-existing hypertension Status: Chronic (7) HELLP syndrome Status: Resolved Qualifiers: Trimester: unspecified trimester Qualified Code(s): O14.20 - HELLP syndrome (HELLP), unspecified trimester Plan - Discharge Medications Prescriptions: Ferrous Sulfate [Feosol 325 MG tab] 325 mg PO BID #60 tablet Ibuprofen [Motrin 800 MG tab] 800 mg PO Q6H PRN #30 tablet PRN Reason: Pain, Mild (1-3) HYDROcodone/APAP 5-325 [[place] 5-325 mg TAB] 1 each PO Q6HR PRN #30 tablet PRN Reason: Pain, Moderate (4-6) Labetalol [Normodyne TAB] 400 mg PO BID #60 tablet Vit-Fe Fumar-FA [ Vitamin] 1 each PO QDAY #30 tablet - Provider Discharge Summary Activity: routine, no sex for 6 weeks, no heavy lifting 4 weeks, no strenuous e xercise Diet: routine Instructions: routine Additional instructions: [] Smoking cessation referral if applicable(refer to patient education folder for contact #) [] Refer to [facility] Booklet Call your doctor immediately for: * Fever > 100.5 * Heavy vaginal bleeding ( >1 pad per hour) * Severe persistent headache * Shortness of breath * Reddened, hot, painful area to leg or breast * Drainage or odor from incision. * Keep incision clean and dry at all times and follow doctor's instructions regarding bathing/showering Follow up in office in 1 week for BP check - Follow up plan Follow up: OLINDA URBINA MD [Primary Care Provider] - 7 Days FORD DURAN CNM [Advanced Practice Nurse] - 7 Days
[2019-02-23] MEDS: NORMODYNE PO SCH ×2 (11:45→11:50)
[2019-02-23] MEDS: IBUPROFEN PO PRN (11:48)
[2019-02-23] MEDS: PRENATAL VITAMIN PO SCH ×2 (11:49→11:50)
[2019-02-23] MEDS: FEOSOL PO SCH ×2 (11:50→18:50)
[2019-02-23 18:46] VITALS: BP 151/70
== END 2019-02-23 20:40 | disposition home or self-care (01) | DRG 765 ==
LOC: EDBD 12:54 → LD 12:54 → UNDOADMIN 12:54 → LD 02-12 12:33 → OB 02-21 14:14
PROVIDERS: ADMIT Obstetrics & Gynecology; ATTEND Obstetrics & Gynecology
PROC: 10D00Z1 Extraction of Products of Conception, Low, Open Approach (ICD-10-PCS; principal; 2019-02-20)
PROC: 3E0234Z Introduction of Serum, Toxoid and Vaccine into Muscle, Percutaneous Approach (ICD-10-PCS; 2019-02-21)
DX: O34.211 Maternal care for low transverse scar from previous cesarean delivery (principal); O60.14X0 Preterm labor third trimester with preterm delivery third trimester, not applicable or unspecified; O11.4 Pre-existing hypertension with pre-eclampsia, complicating childbirth; E66.01 Morbid (severe) obesity due to excess calories; O36.5930 Maternal care for other known or suspected poor fetal growth, third trimester, not applicable or unspecified; O69.89X0 Labor and delivery complicated by other cord complications, not applicable or unspecified; O76 Abnormality in fetal heart rate and rhythm complicating labor and delivery; O99.214 Obesity complicating childbirth; O36.5130 Maternal care for known or suspected placental insufficiency, third trimester, not applicable or unspecified; O99.02 Anemia complicating childbirth; D64.9 Anemia, unspecified; Z71.3 Dietary counseling and surveillance; Z37.0 Single live birth; Z3A.29 29 weeks gestation of pregnancy; Z23 Encounter for immunization
CPT/HCPCS: 36415; 76815; 76819; 76820; 80076; 81001; 82232; 82565; 83036; 83615; 83735; 84156; 84450; 84460; 84550; 85007; 85025; 85027; 85049; 86147; 86762; 86777; 86778; 86850; 86900; 86901; 86920; 87497; 87806; 88307; G0378; C9250; J0330; J0360; J0690; J0696; J0702; J1100; J1170; J1885; J2001; J2270; J2370; J2405; J2590; J2704; J2765; J3010; J3475; J7120; J7121